=== PATIENT | male | born 1925 | race American Indian/Alaskan Native ===

== ENCOUNTER 2016-07-08 10:28 | Inpatient (IN) | payer MEDICARE ==
--- NOTE | 2016-07-08 11:11 | Cat Scan Report ---
Cranial CT without contrast. Findings: There is no evidence of an acute hemorrhage or infarct. There are no masses or extra-axial collections. Moderate senescent changes are present. The ventricles are normal in size and contour. There is no shift of midline structures. The posterior fossa is unremarkable. The The calvarium is intact. Mild ethmoid sinus disease is present. Impression: No acute findings.
[2016-07-08 11:18] LABS: INR 1.14 (0.87-1.13); Partial Thromboplastin Time 29.6 Sec. (24.2-36.6)
[2016-07-08 11:26] LABS: Anion Gap 18 mmol/L; Blood Urea Nitrogen 18 mg/dL (9-20); Calcium 9.2 mg/dL (8.4-10.2); Carbon Dioxide 26 mmol/L (22-30); Chloride 98.3 mmol/L (98-107); Glucose 147 mg/dL (75-100); Potassium 3.8 mmol/L (3.6-5.0); Sodium 138 mmol/L (137-145)
[2016-07-08 11:30] LABS: Basophils % (Auto) 0.2 % (0.0-1.8); Hematocrit 42.5 % (35.5-45.6); Hemoglobin 13.7 gm/dl (11.8-15.2); Mean Corpuscular HGB Conc 32 % (32-34); Mean Corpuscular Hemoglobin 26 pg (28-32); Mean Corpuscular Volume 79 fl (84-94); Platelet Count 168 K/mm3 (140-440); Red Blood Count 5.37 M/mm3 (3.65-5.03); Red Cell Distribution Width 14.5 % (13.2-15.2)
--- NOTE | 2016-07-08 11:44 | Emergency Department Report ---
HPI - General Chief Complaint: Neuro Symptoms/Deficit Time Seen by Provider: 07/08/16 10:52 - HPI HPI: Chief complaint: Decreased responsiveness right-sided hemiparesis HPI: Patient is an 89-year-old man with a history of hypertension, atrial fibrillation and previous stroke fact in the right side is baseline includes a slight right hemiparesis and a mild aphasia who was found on the floor by his daughter this morning. Last known well time was after midnight. Patient quit taking all of his medications a year ago. Mode of arrival: EMS Source: [old chart] [family member] Began: During the night see above Duration: Unclear Context: According to patient's daughter he's not been ill had any complaints prior to this event. Quality: Unable to assess Severity: Unable to assess Improved with: Unable to assess Worsened with: Unable to assess Associated signs and symptoms: Unable to assess ED Past Medical Hx - Past Medical History Previous Medical History?: Yes Hx Hypertension: Yes Hx CVA: Yes (2014) - Surgical History Additional Surgical History: hernia repair. eye surgery - Social History Smoking Status: Never Smoker Substance Use Type: None - Medications Home Medications: Home Medications Medication Instructions Recorded Confirmed Last Taken Type No Known Home Medications [No 07/08/16 07/08/16 Unknown History Reported Home Medications] ED Review of Systems ROS: Stated complaint: AMS Other details as noted in HPI Comment: Unobtainable due to pts medical conditions Physical Exam - Physical Exam Vital Signs: Vital Signs 07/08/16 07/08/16 07/08/16 10:29 10:37 10:38 Pulse Rate 62 Respiratory 16 15 Rate Blood Pressure 192/105 O2 Sat by Pulse 100 98 Oximetry 07/08/16 07/08/16 07/08/16 10:39 10:40 10:45 Pulse Rate 124 H 118 H Respiratory 20 23 23 Rate Blood Pressure 175/106 O2 Sat by Pulse 99 98 98 Oximetry Physical Exam: GENERAL: The patient is an elderly -Colombian male in no acute distress. HEENT: Normocephalic. Atraumatic. Extraocular motions are intact. Patient has moist mucous membranes. NECK: Supple. No meningitic signs are noted. There is no adenopathy noted. CHEST/LUNGS: Clear to auscultation. There is no respiratory distress noted. HEART/CARDIOVASCULAR: Regular. There is no tachycardia. There is no gallop rub or murmur. ABDOMEN: Abdomen is soft, nontender. Patient has normal bowel sounds. There is no abdominal distention. SKIN: There is no rash. There is no edema. There is no diaphoresis. NEURO: The patient is awake, alert, follows a few simple commands. Patient has a dense right hemiparesis and aphasia. MUSCULOSKELETAL: There is no tenderness or deformity. There is no evidence of acute injury. ED Course Vital Signs 07/08/16 07/08/16 07/08/16 10:29 10:37 10:38 Pulse Rate 62 Respiratory 16 15 Rate Blood Pressure 192/105 O2 Sat by Pulse 100 98 Oximetry 07/08/16 07/08/16 07/08/16 10:39 10:40 10:45 Pulse Rate 124 H 118 H Respiratory 20 23 23 Rate Blood Pressure 175/106 O2 Sat by Pulse 99 98 98 Oximetry - Reevaluation(s) Reevaluation #1: 07/08/16 12:15 Patient is outside the window for TPA and for neuro intervention as it has been 11 hours since his last known well time. He should also has elevated troponin and will be admitted to the hospitalist with consultation placed to cardiology, [facility] for his elevated troponin. I did discuss with the family if they knew what his wishes were for CODE STATUS but they were unable to make a decision at this time. ED Medical Decision Making - Lab Data Result diagrams: 07/08/16 10:43 07/08/16 10:43 Laboratory Tests 07/08/16 07/08/16 07/08/16 10:43 10:43 10:43 PT 14.5 INR 1.14 H APTT 29.6 Thrombin Time 17.8 Troponin T 0.592 H* - EKG Data -: EKG Interpreted by Me (female with a rate of 112) Rate: tachycardia - EKG Data When compared to previous EKG there are: previous EKG unavailable Interpretation: subendocardial ischemia (lateral T-wave inversion), other (for initial anterior forces.) - Radiology Data Radiology results: report reviewed (CT head shows no acute process, chest x-ray shows no acute process.) Critical care attestation.: If time is entered above; I have spent that time in minutes in the direct care of this critically ill patient, excluding procedure time. ED Disposition Clinical Impression: Elevated troponin CVA (cerebral vascular accident) Qualifiers: CVA mechanism: unspecified Qualified Code(s): I63.9 - Cerebral infarction, unspecified Disposition: OP ADMITTED IP TO THIS HOSP Is pt being admited?: Yes Does the pt Need Aspirin: Yes Condition: Fair Referrals: PRIMARY CARE,MD [Primary Care Provider] - 3-5 Days Time of Disposition: 11:58 (admit to the hospitalist)
--- NOTE | 2016-07-08 11:45 | XRay Report ---
AP CHEST: HISTORY: CVA AP view of the chest demonstrates a normal mediastinal and cardiac contour with clear lungs and normal bony and soft tissue structures. IMPRESSION: No acute cardiopulmonary process.
[2016-07-08] MEDS ORDERED: ASPIRIN PR ONE ×2 (12:05→17:19)
[2016-07-08 12:08] LABS: Cholesterol 207 mg/dL (50-199); HDL Cholesterol 76 mg/dL (40-59); LDL Cholesterol,Direct 121 mg/dL (50-130); Triglycerides 50 mg/dL (2-149)
--- NOTE | 2016-07-08 13:49 | Admit Criteria Form ---
Admission Criteria Documentation: TELEMETRY CARE Telemetry Admission Guidelines (Place 'X' for any and all applicable criteria): Admission to telemetry [A] may be indicated for ANY ONE of the following(1)(2)(3 )(4)(5): [ ]I. Cardiac disease, including ANY ONE of the following (9)(10)(11)(12)(13 ): [ ]a) Postacute MN [ ]b) Low-risk patients with ST-segment elevation MN who have undergone successful percutaneous coronary intervention [ ]c) Unstable angina [ ]d) Suspected MN (until it is ruled out) [ ]e) Post cardiac surgery (first 48 to 72 hours unless complications occur) [ ]f) Acute arrhythmias (including significant tachycardia or bradycardia) [B] [ ]g) Firing of an implantable cardioverter defibrillator [C] [ ]h) Suspected pacemaker or implantable cardioverter defibrillator malfunction (10) [ ]i) New administration or adjustment of an antiarrhythmic drug [D ] [ ]j) Child admitted for acute congestive heart failure [ ]j) Long QT syndrome [ ]k) Advanced heart block (eg, second-degree Mobitz type II, third- degree heart block) [ ]l) Acute myocarditis or pericarditis [ ]m) Short-term (ambulatory or inpatient) monitoring after a cardiac procedure as indicated by ANY ONE of the following [E]: [ ]i) Electrophysiologic studies [ ]ii) Percutaneous coronary intervention with stent placement [ ]iii) Pacemaker placement with cardiac conduction defect [ ]iv) Implantable cardiac defibrillator placement [ ]II. Drug overdose or poisoning with substance that causes arrhythmias or QT prolongation (eg, phenothiazines, sympathomimetic agents, cyclic antidepressants, digitalis, antiarrhythmic drugs)(15) [ ]III. Short-term (ambulatory or inpatient) monitoring after therapeutic or diagnostic procedure requiring conscious sedation or anesthesia (eg, endoscopy, elective cardioversion) [ X]IV. Acute cerebrovascular even[F](18) [ ]V. Massive blood transfusion (eg, at least 10 units of packed red blood cells in 24 hours) [ ]. Variceal bleeding after endoscopy, sclerotherapy, or IV vasopressin [ ]VII. Uncorrected electrolyte abnormalities associated with an increased risk of dangerous arrhythmia [G]; examples include [ ]a) Hyperkalemia with attributable ECG changes [ ]b) Potassium greater than 6.5 mmol/L (mEq/L) in a patient without history of chronic renal disease [ ]c) Prolonged QT attributed to hypokalemia, hypomagnesemia, or hypocalcemia [ ]VIII.Unexplained syncope or other neurologic event suspected of being due to arrhythmia due to a finding that increases risk; examples include(19)(20)(21): [ ]a) High-risk ECG findings (eg, bifascicular block, bradycardia, abnormal QT interval, ventricular pre- excitation) [ ]b) History of previous syncope due to arrhythmia [ ]c) Abnormal ventricular function (eg, reduced ejection fraction ) [ ]d) Exertional or supine syncope [ ]e) Concerning syncope characteristics (eg, sudden loss of consciousness without prodrome) [ ]f) Family history of sudden [ ]g) Use of arrhythmogenic medication [ ]h) Suspected cardiac ischemia [ ]i) Known channelopathy (eg, long QT syndrome, Brugada syndrome, or catecholaminergic paroxysmal ventricular tachycardia) [ ]j) Known structural heart disease (eg, hypertrophic cardiomyopathy , severe valvular disease) [ ]k) Palpitations preceding syncope The original [employer] content created by [employer] has been revised. The portions of the content which have been revised are identified through the use of italic text or in bold, and [employer] has neither reviewed nor approved the modified material. All other unmodified content is copyright [employer]. Please see references footnoted in the original [employer] edition 2016 Admission Criteria Met: Yes
[2016-07-08 15:00] LABS: Bacteria,Urine 1+ /HPF (Negative); Bilirubin,Urine NEG (Negative); Blood,Urine LG (Negative); Ketones,Urine NEG (Negative); Leukocyte Esterase,Urine MOD (Negative); Nitrite,Urine NEG (Negative); Urobilinogen,Urine < 2.0 mg/dL (<2.0)
[2016-07-08 15:02] LABS: RBC,Urine > 182.0 /HPF (0.0-6.0)
--- NOTE | 2016-07-08 17:00 | Consultation ---
History of Present Illness Consult date: 07/08/16 Consult reason: atrial fibrillation History of present illness: The history was obtained from the patient's daughter since he is currently aphasic. 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 According to his daughter, he was found to be in atrial fibrillation and placed on Eliquis. However, he reportedly converted back to sinus rhythm. The patient refused to use any of his medications. According to his daughter, he was competent when he made the decision. This morning, his daughter found him lying on the floor, aphasic. He was brought to the emergency department where he was noted to be in rapid atrial fibrillation. His blood pressure was elevated at presentation. He was also noted not to be moving his right side. Brain CT scan did not show any acute findings. Troponin level is positive for acute NSTEMI. Past History Past Medical History: hypertension, hyperlipidemia, stroke Past Surgical History: Other (eye surgery) Social history: . denies: smoking, alcohol abuse Family history: denies: CAD Medications and Allergies Allergies Allergy/AdvReac Type Severity Reaction Status Date / Time No Known Allergies Allergy Unverified 07/08/16 10:36 Home Medications Medication Instructions Recorded Confirmed Last Taken Type No Known Home Medications [No 07/08/16 07/08/16 Unknown History Reported Home Medications] Review of Systems ROS unobtainable: due to mental status Physical Examination Vital Signs Pulse Resp BP Pulse Ox 62 16 192/105 100 07/08/16 10:29 07/08/16 10:29 07/08/16 10:29 07/08/16 10:29 General appearance: no acute distress HEENT: Positive: Normocephaly, Mucus Membranes Moist Neck: Positive: neck supple, trachea midline Cardiac: Positive: irregularly irregular, S1/S2 Lungs: Positive: clear to auscultation Neuro: Positive: Other (left hemiparesis with aphasia) Abdomen: Positive: Soft, Active Bowel Sounds. Negative: Tender Skin: Positive: Clear. Negative: Rash Musculoskeletal: No Fluid Collection Extremities: Present: normal. Absent: edema Results 07/08/16 10:43 07/08/16 10:43 - Imaging and Cardiology EKG: image reviewed EKG interpretations - Telemetry EKG Rhythm: Atrial Fibrillation - EKG Supraventricular dysrhythmia: atrial fibrillation, atrial flutter Repolarization changes or abnormalities: ST or T wave suggestive of ischemia Assessment and Plan Initiate IV Cardizem drip for rate control and BP. Additional parenteral antihypertensive medications while NPO. Consider neurology consultation. Intravenous heparin if and when alright from a neurology standpoint. Obtain echocardiogram. Obtain additional sets of cardiac enzymes. - Patient Problems (1) Acute CVA (cerebrovascular accident) Current Visit: Yes Status: Acute (2) Acute non-ST elevation myocardial infarction (NSTEMI) Current Visit: Yes Status: Acute (3) Accelerated hypertension Current Visit: Yes Status: Acute (4) Atrial fibrillation with rapid ventricular response Current Visit: Yes Status: Acute (5) Atrial fibrillation and flutter Current Visit: Yes Status: Acute (6) Noncompliance Current Visit: Yes Status: Acute
[2016-07-08] MEDS: LOPRESSOR IV SCH (17:55)
[2016-07-08] MEDS ORDERED: CARDIZEM/D5W 100MG/100ML 100 MG/100 ML BAG IV SCH (18:00)
--- NOTE | 2016-07-08 22:09 | Event Note ---
Date: 07/08/16 See H/p in reports
[2016-07-08] MEDS ORDERED: MILK OF MAGNESIA PO PRN ×2 (22:10→22:14)
[2016-07-08] MEDS ORDERED: DILAUDID IV PRN (22:10)
[2016-07-08] MEDS ORDERED: TYLENOL PO PRN ×2 (22:10→22:14)
[2016-07-08] MEDS ORDERED: ZOFRAN IV PRN ×2 (22:10→22:14)
[2016-07-08] MEDS ORDERED: DULCOLAX PR PRN ×2 (22:10→22:14)
[2016-07-08] MEDS ORDERED: PHENERGAN PR PRN (22:14)
[2016-07-08] MEDS ORDERED: REGLAN PO PRN (22:14)
[2016-07-08] MEDS ORDERED: SODIUM CHLORIDE FLUSH SYRINGE 10 ML IV PRN (22:14)
--- NOTE | 2016-07-08 23:42 | History and Physical Report ---
CHIEF COMPLAINT: Right-sided weakness since last night. HISTORY OF PRESENT ILLNESS: This 89-year-old male with history of hypertension, atrial fibrillation, previous cerebrovascular accident with right-sided hemiparesis who was walking, was found to be aphasic and completely weak on the right side. He was found on the floor by the daughter this morning. Last ____ was last night. The patient quit taking all of his medications a year ago. The patient does have hypertension and atrial fibrillation. No palpitations. No chest pain. No shortness of breath. Unable to move right upper and right lower extremity completely. Also unable to talk. PAST MEDICAL HISTORY: Significant for hypertension, atrial fibrillation, cerebrovascular accident in 2015. PAST SURGICAL HISTORY: Hernia repair and eye surgery. SOCIAL HISTORY: Does not smoke. CURRENT MEDICATIONS: None. Stopped taking medications about a year ago. FAMILY HISTORY: Significant for hypertension. REVIEW OF SYSTEMS: Significant for; CONSTITUTIONAL: Altered mental status and aphasia. HEENT: No sore throat. No postnasal drip. CARDIOVASCULAR AND RESPIRATORY: No shortness of breath, no chest pain, no palpitations, no cough. GASTROINTESTINAL: No nausea, no vomiting, no diarrhea. GENITOURINARY: No dysuria, no flank pain. MUSCULOSKELETAL: No joint pains, no muscle pains. SKIN: No rashes. CENTRAL NERVOUS SYSTEM: Right upper extremity and right lower extremity weakness present. Also, unable to talk. Unable to walk. SKIN: No rashes. LYMPHATIC AND HEMATOLOGIC: No bruising, no lymphedema present. PSYCHIATRIC: No depression, no anxiety. A 14-point review of systems done, other than history of present illness, essentially negative. PHYSICAL EXAMINATION: GENERAL: Elderly male, cooperative during examination. Unable to talk. VITAL SIGNS: Temperature is 98, pulse is 62 initially, blood pressure is 175/106 and 192/105, sats are 99%. HEENT: Right facial paralysis present. Aphasic. NECK: Supple, no carotid artery bruit. LUNGS: Clear to auscultation and percussion. Good air entry. CARDIOVASCULAR: S1, S2 heard. No gallop, no murmur, no rub. Apical impulse in left fifth intercostal space and midclavicular line. ABDOMEN: Soft and benign. No hepatosplenomegaly. No guarding. No rigidity. MUSCULOSKELETAL: Good pedal pulses. No pedal edema. CENTRAL NERVOUS SYSTEM: Right upper extremity and right lower extremity 0/5 power. Reflexes are brisk on the right side. Right facial paralysis present. Aphasia present. Sensory system could not be tested. Cranial nerves are normal other than the right seventh facial. Hearing appears to be normal. SKIN: Normal. LABORATORY DATA AND IMAGING STUDIES: EKG shows heart rate of 112, tachycardia, lateral T-wave inversion. CT of the head, no acute process. Chest x-ray, no acute process. LABORATORY DATA: White count is 7000, H and H is 13.7 and 42.5, platelet count is 168,000. Protime is 14.5, INR is 1.14. Sodium is 138, potassium is 3.8. Troponin is ____. Cholesterol is 207. HDL cholesterol is 76, triglycerides 50. Urine shows white blood cells of 36 and RBC of 182. ASSESSMENT AND PLAN: 1. Altered mental status, probably secondary to acute cerebrovascular accident. We will treat the cerebrovascular accident. Cerebrovascular accident workup. 2. Acute cerebrovascular accident. Cerebrovascular accident workup in the form of MRI and MRA of brain, echocardiogram, and carotid duplex scan. The patient also to be started on Plavix since there is no bleed. Also, physical therapy consult ordered. 3. Hypertension, uncontrolled at this point. The patient not taking any medications. We will initiate him on Losartan 100 daily and Coreg 3.125 q.12h. 4. Atrial fibrillation with rapid ventricular response. The patient started on a Cardizem drip. 5. Noncompliance. The patient counseled. 5. Deep venous thrombosis prophylaxis, Lovenox 40 mg subcutaneous daily. 6. Hypoglycemia. Monitor glucose levels a.c. and at bedtime and check hemoglobin A1c. Initiate him on hypoglycemics if necessary. Consult was placed for ____ Neurology, Dr. Nia Hoffmann for rehabilitation and Dr. Carrasco for atrial fibrillation with rapid ventricular rate and also evaluated troponin. 7. Elevated troponin, probably nonspecific. CK is normal. There is some lateral T-wave inversion. We will defer to Cardiology for further evaluation of ischemic disease in view of the high troponin. JOB# [id number] VSM/NTS
[2016-07-09] MEDS: LOPRESSOR IV SCH ×4 (00:30→21:05)
[2016-07-09 06:16] LABS: Basophils % (Auto) 0.8 % (0.0-1.8); Hemoglobin 14.5 gm/dl (11.8-15.2); Mean Corpuscular HGB Conc 32 % (32-34); Mean Corpuscular Volume 79 fl (84-94); Platelet Count 131 K/mm3 (140-440); Red Cell Distribution Width 14.7 % (13.2-15.2)
[2016-07-09 06:18] LABS: Mean Corpuscular Hemoglobin 25 pg (28-32)
[2016-07-09 06:39] LABS: Alanine Aminotransferase 23 units/L (7-56); Albumin 3.6 g/dL (3.9-5); Albumin/Globulin Ratio 0.9 %; Alkaline Phosphatase 72 units/L (35-129); Bilirubin,Total 1.5 mg/dL (0.1-1.2); Blood Urea Nitrogen 18 mg/dL (9-20); Calcium 9.2 mg/dL (8.4-10.2); Carbon Dioxide 27 mmol/L (22-30); Glucose 140 mg/dL (75-100); Total Protein 7.4 g/dL (6.3-8.2)
[2016-07-09 06:40] LABS: Anion Gap 18 mmol/L; Chloride 98.1 mmol/L (98-107); Sodium 139 mmol/L (137-145)
[2016-07-09] MEDS ORDERED: CARDIZEM CD PO SCH (10:00)
[2016-07-09] MEDS ORDERED: NORVASC PO SCH (10:00)
[2016-07-09] MEDS ORDERED: ZESTRIL PO SCH (10:00)
[2016-07-09] MEDS ORDERED: COZAAR PO SCH (10:00)
[2016-07-09] MEDS ORDERED: LOPRESSOR PO SCH (10:00)
[2016-07-09] MEDS ORDERED: ROCEPHIN/NS 1 GM/50 ML 1 GM/50 ML BAG IV SCH (10:00)
[2016-07-09] MEDS ORDERED: LOPRESSOR IV SCH (10:00)
--- NOTE | 2016-07-09 10:20 | Consultation ---
History of Present Illness Consult date: 07/09/16 Requesting physician: TIP NIÑO Reason for Consult: stroke Chief complaint: AMS limits direc thx d/t aphasia History of present illness: 89 YO M Hx stroke w/ residual R hemiparesis and AFib noncompliant w/ Plavix/AC for 1 year found down @ home on 07/08. Last well is unclear. He was found to be aphasic with R sided hemiplegia. Sx are constant. There are no clear aggravating , relieving or temporal factors. Severity was enough to cause inability to effectively use the right side or communicate. Past History Past Medical History: atrial fib, hypertension, hyperlipidemia, stroke Past Surgical History: Other (eye surgery) Social history: . denies: smoking, alcohol abuse Family history: denies: CAD Medications and Allergies Allergies Allergy/AdvReac Type Severity Reaction Status Date / Time No Known Allergies Allergy Unverified 07/08/16 10:36 Home Medications Medication Instructions Recorded Confirmed Last Taken Type No Known Home Medications [No 07/08/16 07/08/16 Unknown History Reported Home Medications] Active Meds: Active Medications Acetaminophen (Tylenol) 650 mg PO Q4H PRN PRN Reason: Pain, Mild (1-3) Amlodipine Besylate (Norvasc) 10 mg PO QDAY ALEXA Bisacodyl (Dulcolax) 10 mg RI QDAY PRN PRN Reason: Constipation unrelieved by MOM Clopidogrel Bisulfate (Plavix) 75 mg PO QDAY ALEXA Enalaprilat (Vasotec) 1.25 mg IV Q6HR ALEXA Hydralazine HCl (Apresoline) 10 mg IV Q4H PRN PRN Reason: SBP >160 Hydromorphone HCl (Dilaudid) 0.5 mg IV Q3H PRN PRN Reason: Pain , Severe (7-10) Sodium Chloride (Nacl 0.9% 1000 Ml) 1,000 mls @ 75 mls/hr IV DIRECT ALEXA Ceftriaxone Sodium (Rocephin/Ns 1 Gm/50 Ml) 1 gm in 50 mls @ 100 mls/hr IV Q24HR ALEXA PRN Reason: Protocol Lisinopril (Zestril) 40 mg PO QDAY ALEXA Losartan Potassium (Cozaar) 100 mg PO QDAY ALEXA Magnesium Hydroxide (Milk Of Magnesia) 30 ml PO Q4H PRN PRN Reason: Constipation Metoclopramide HCl (Reglan) 10 mg PO Q6H PRN PRN Reason: Nausea And Vomiting Metoprolol Tartrate (Lopressor) 5 mg IV Q4HR ALEXA Metoprolol Tartrate (Lopressor) 50 mg PO Q6H ALEXA Ondansetron HCl (Zofran) 4 mg IV Q8H PRN PRN Reason: N/V unrelieved by Reglan Oxycodone/Acetaminophen (Percocet 5/325) 1 tab PO Q6H PRN PRN Reason: Pain, Moderate (4-6) Promethazine HCl (Phenergan) 25 mg RI Q6H PRN PRN Reason: Nausea And Vomiting Simvastatin (Zocor) 20 mg PO QHS ALEXA Sodium Chloride (Sodium Chloride Flush Syringe 10 Ml) 10 ml IV PRN PRN PRN Reason: LINE FLUSH Review of Systems ROS unobtainable: due to mental status Physical Examination - Vital Signs Vital Signs: Vital Signs Pulse Resp BP Pulse Ox 62 16 192/105 100 07/08/16 10:29 07/08/16 10:29 07/08/16 10:29 07/08/16 10:29 - Constitutional General appearance: acutely ill - EENT EENT: Present: ATNC, PERRL, mucous membranes dry, hearing intact, vision intact - Respiratory Respiratory: Present: chest non-tender, no respiratory distress, decreased breath sounds - Cardiovascular Cardiovascular: Present: other (AFib) Extremities: Present: no peripheral edema bilatateraly, no clubbing, cyanosis, no inflammation, no ischemia or petechiae - Gastrointestinal Gastrointestinal: Present: normoactive bowel sounds, soft, non-distended - Integumentary Integumentary: Present: normal - Neurologic Cranial nerve examination: PERRL, EOMI, VFF, V1/V2/V3 grossly intact, intact cough reflex, Intact Vestibulo-ocular r, intact corneal reflex, facial droop ( on R mild) Speech examination: global aphasia Sensorimotor examination: flaccid paralysis (on R) Motor examination - right side: 04/18: biceps, triceps, wrist flexion, wrist extension, ice cream van vendor, 5: hip flexors, knee extensors, dorsiflexion, toe extension ( EHL), plantarflexion Motor examination - left side: 5/5: biceps, triceps, wrist flexion, wrist extension, ice cream van vendor, hip flexors, knee extensors, dorsiflexion, toe extension (EHL) , plantarflexion Detailed sensory examination: intact, pain Reflex and gait examination: Babinski's sign (on R) Reflexes: 3+: ankle (on R), bicep, knee, tricep - Musculoskeletal Musculoskeletal: Present: no fluid collection, no pain, normal range of motion - Psychiatric Psychiatric: Present: mood/affect appropriate, cooperative Results - Laboratory Findings CBC and BMP: 07/09/16 05:58 07/09/16 05:58 Abnormal Lab Findings: Abnormal Labs 07/08/16 07/09/16 07/09/16 14:47 05:58 05:58 RBC 5.70 H MCV 79 L MCH 25 L Plt Count 131 L Lymph % (Auto) 11.6 L [place] % (Auto) 10.0 H Lymph # 1.0 L [place] # 0.9 H Seg Neutrophils % 77.6 H Glucose 140 H Total Bilirubin 1.5 H Albumin 3.6 L Urine WBC (Auto) 36.0 H Assessment and Plan 89 YO M Hx stroke w/ residual mild aphasia and R hemiparesis and AFib not compliant w/ AC/Plavix 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 CTH neg. NIHSS 17. TTE neg. LDL 121 Plan and Recommendation: 1. No indication for pharmacologic thrombolysis with IV tPA or mechanical thrombectomy due to last known normal > 6 hrs from presentation. Current NIHSS 17. 2. Telemetry bed w/ Q4 hour neuro checks 3. Brain imaging: MRI Brain w/o Ryan Stroke Protocol 4. Vascular Imaging: Bilateral Carotid Duplex U/S 5. Permissive HTN for first 24-48 hours: HOB < 30 degrees, isotonic IVF prn and refrain from active Tx of HTN unless BP > 185/105 or pt develops malignant HTN. Can lower MAPs by 10-15% daily to reach goal SBP 120-160 after permissive HTN period 6. Secondary stroke prevention: ASA 300mg RI QDay. I would avoid introduction of therpaeutic AC for 7-10 days to minimize risk of ICH as this is a large lobar stroke syndrome. Upgrade to full dose statin therapy (Crestor 20mg or 40mg OR Lipitor 40mg or 80mg Daily OR Zocor 40mg QDay) for goal LDL < 70. 7. F/E/N: isotonic IVF prn, prn replete, bedside speech/swallow eval prior to PO intake. Pt may require PEG considering stroke severity. 8. DVT Prophylaxis 9. Stroke education, PT/OT/Speech Therapy consults, CM evaluation 10. For any changes in neurologic status, pls obtain STAT CTH w/o contrast and call neurology
[2016-07-09] MEDS: APRESOLINE IV PRN (10:45)
--- NOTE | 2016-07-09 11:19 | Progress Note ---
Assessment and Plan Obtain additional sets of cardiac enzymes. Continue parenteral antihypertensive medications while NPO. Intravenous heparin if and when alright from a neurology standpoint. - Patient Problems (1) Acute CVA (cerebrovascular accident) Current Visit: Yes Status: Acute (2) Acute non-ST elevation myocardial infarction (NSTEMI) Current Visit: Yes Status: Acute (3) Accelerated hypertension Current Visit: Yes Status: Acute (4) Atrial fibrillation with rapid ventricular response Current Visit: Yes Status: Acute (5) Atrial fibrillation and flutter Current Visit: Yes Status: Acute (6) Noncompliance Current Visit: Yes Status: Acute Subjective Date of service: 07/09/16 Principal diagnosis: atrial fibrillation Interval history: The patient is resting in bed. He is aphasic. Atrial fibrillation with controlled ventricular rate on the monitor. Objective Last Vital Signs Temp 98 F 07/09/16 07:00 Pulse 105 H 07/09/16 10:45 Resp 25 H 07/09/16 04:31 BP 194/127 07/09/16 10:45 Pulse Ox 94 07/09/16 04:00 - Physical Examination General: No Apparent Distress (aphasic) HEENT: Positive: Normocephaly, Mucus Membranes Moist Neck: Positive: neck supple, trachea midline Cardiac: Positive: irregularly irregular, S1/S2 Lungs: Positive: clear to auscultation Neuro: Positive: Other (left hemiparesis with aphasia) Abdomen: Positive: Soft, Active Bowel Sounds. Negative: Tender Skin: Positive: Clear. Negative: Rash Musculoskeletal: No Fluid Collection Extremities: Present: normal. Absent: edema - Labs and Meds Cardiac Enzymes 07/09/16 Range/Units 05:58 AST 38 (5-40) units/L CBC 07/09/16 Range/Units 05:58 WBC 9.0 (4.5-11.0) K/mm3 RBC 5.70 H (3.65-5.03) M/mm3 Hgb 14.5 (11.8-15.2) gm/dl Hct 45.0 (35.5-45.6) % Plt Count 131 L (140-440) K/mm3 Lymph # 1.0 L (1.2-5.4) K/mm3 [place] # 0.9 H (0.0-0.8) K/mm3 Eos # 0.0 (0.0-0.4) K/mm3 Baso # 0.1 (0.0-0.1) K/mm3 Comprehensive Metabolic Panel 07/09/16 Range/Units 05:58 Sodium 139 (137-145) mmol/L Potassium 4.0 (3.6-5.0) mmol/L Chloride 98.1 (98-107) mmol/L Carbon Dioxide 27 (22-30) mmol/L BUN 18 (9-20) mg/dL Creatinine 0.9 (0.8-1.5) mg/dL Glucose 140 H (75-100) mg/dL Calcium 9.2 (8.4-10.2) mg/dL AST 38 (5-40) units/L ALT 23 (7-56) units/L Alkaline Phosphatase 72 (35-129) units/L Total Protein 7.4 (6.3-8.2) g/dL Albumin 3.6 L (3.9-5) g/dL - Imaging and Cardiology EKG: image reviewed Echo: report reviewed (06/2016: EF 50-55%) - Telemetry EKG Rhythm: Atrial Fibrillation Repolarization changes or abnormalities: ST or T wave suggestive of ischemia
[2016-07-09] MEDS ORDERED: VASOTEC IV SCH (12:00)
--- NOTE | 2016-07-09 12:10 | Consultation ---
History of Present Illness - Reason for Consult Consult date: 07/09/16 ICU Requesting physician: NEO FRITZ - History of Present Illness 89 y/o male, with prior history of stroke, admitted to ICU with afib with RVR and concern for new stroke. Unfortunately patient was out of window for TPA given last well known time. Remainder of the review is positive for unilateral weakness. Patient awake and following commands. Past History Past Medical History: atrial fib, hypertension, hyperlipidemia, stroke Past Surgical History: Other (eye surgery) Social history: . denies: smoking, alcohol abuse Family history: denies: CAD Medications and Allergies Allergies Allergy/AdvReac Type Severity Reaction Status Date / Time No Known Allergies Allergy Unverified 07/08/16 10:36 Home Medications Medication Instructions Recorded Confirmed Last Taken Type No Known Home Medications [No 07/08/16 07/08/16 Unknown History Reported Home Medications] Active Meds: Active Medications Acetaminophen (Tylenol) 650 mg PO Q4H PRN PRN Reason: Pain, Mild (1-3) Amlodipine Besylate (Norvasc) 10 mg PO QDAY ALEXA Bisacodyl (Dulcolax) 10 mg [place] QDAY PRN PRN Reason: Constipation unrelieved by MOM Clopidogrel Bisulfate (Plavix) 75 mg PO QDAY ALEXA Enalaprilat (Vasotec) 1.25 mg IV Q6HR ALEXA Hydralazine HCl (Apresoline) 10 mg IV Q4H PRN PRN Reason: Blood Pressure Last Admin: 07/09/16 10:45 Dose: 10 mg Hydromorphone HCl (Dilaudid) 0.5 mg IV Q3H PRN PRN Reason: Pain , Severe (7-10) Sodium Chloride (Nacl 0.9% 1000 Ml) 1,000 mls @ 75 mls/hr IV DIRECT ALEXA Ceftriaxone Sodium (Rocephin/Ns 1 Gm/50 Ml) 1 gm in 50 mls @ 100 mls/hr IV Q24HR AELXA PRN Reason: Protocol Lisinopril (Zestril) 40 mg PO QDAY ALEXA Losartan Potassium (Cozaar) 100 mg PO QDAY ALEXA Magnesium Hydroxide (Milk Of Magnesia) 30 ml PO Q4H PRN PRN Reason: Constipation Metoclopramide HCl (Reglan) 10 mg PO Q6H PRN PRN Reason: Nausea And Vomiting Metoprolol Tartrate (Lopressor) 5 mg IV Q4HR ALEXA Metoprolol Tartrate (Lopressor) 50 mg PO Q6H ALEXA Ondansetron HCl (Zofran) 4 mg IV Q8H PRN PRN Reason: N/V unrelieved by Reglan Oxycodone/Acetaminophen (Percocet 5/325) 1 tab PO Q6H PRN PRN Reason: Pain, Moderate (4-6) Promethazine HCl (Phenergan) 25 mg [place] Q6H PRN PRN Reason: Nausea And Vomiting Simvastatin (Zocor) 20 mg PO QHS ALEXA Sodium Chloride (Sodium Chloride Flush Syringe 10 Ml) 10 ml IV PRN PRN PRN Reason: LINE FLUSH Review of Systems All systems: negative Exam - Constitutional Vitals: Temp Pulse Resp BP Pulse Ox 98 F 105 H 25 H 194/127 94 07/09/16 07:00 07/09/16 10:45 07/09/16 04:31 07/09/16 10:45 07/09/16 04:00 General appearance: Present: no acute distress - Neck Neck: Present: supple - Respiratory Respiratory effort: normal Respiratory: bilateral: CTA - Cardiovascular Rhythm: irregularly irregular Results - Labs CBC & Chem 7: 07/09/16 05:58 07/09/16 05:58 Labs: Abnormal lab results 07/08/16 07/09/16 07/09/16 Range/Units 14:47 05:58 05:58 RBC 5.70 H (3.65-5.03) M/mm3 MCV 79 L (84-94) fl MCH 25 L (28-32) pg Plt Count 131 L (140-440) K/mm3 Lymph % (Auto) 11.6 L (13.4-35.0) % [place] % (Auto) 10.0 H (0.0-7.3) % Lymph # 1.0 L (1.2-5.4) K/mm3 [place] # 0.9 H (0.0-0.8) K/mm3 Seg Neutrophils % 77.6 H (40.0-70.0) % Glucose 140 H (75-100) mg/dL Total Bilirubin 1.5 H (0.1-1.2) mg/dL Albumin 3.6 L (3.9-5) g/dL Urine WBC (Auto) 36.0 H (0.0-6.0) /HPF - Imaging and Cardiology CT Scan - head: report reviewed Assessment and Plan 89 y/o male with afib with RVR and prior history of stroke. 1. Remains in afib. Cardiology waiting on Neuro to let them know when ok for anticoagulation. Reviewed Neuro recs. 2. MRI ordered 3. Carotid duplex ordered 4. Patient is off dilt drip now, hopeful to start long acting PO meds. 5. If remains out of RVR, should be stable for transfer to tele floor. CCT 31 minutes
--- NOTE | 2016-07-09 12:11 | XRay Report ---
SUPINE KUB: The abdominal gas pattern is unremarkable. No masses or organomegaly is identified and there is no gross evidence of free air or fluid. No significant soft tissue calcifications are noted. The feeding tube terminates in the proximal stomach just beyond the GE junction. Consider advancement by 10-15 cm. IMPRESSION: Feeding tube as described. No acute process in the abdomen.
[2016-07-09 13:36] LABS: Creatine Kinase MB 7.1 ng/mL (0.0-4.0)
--- NOTE | 2016-07-09 13:51 | XRay Report ---
SUPINE KUB: History: Feeding tube placement/repositioning. The abdominal gas pattern is unremarkable. No masses or organomegaly is identified and there is no gross evidence of free air or fluid. No significant soft tissue calcifications are noted. The feeding tube has been advanced and now terminates in the body/antrum of the stomach. IMPRESSION: Normal study.
[2016-07-09] MEDS ORDERED: ATIVAN ONE (14:58)
[2016-07-09] MEDS ORDERED: ATIVAN IV ONE (15:35)
[2016-07-09] MEDS: PLAVIX PO SCH (16:29)
--- NOTE | 2016-07-09 16:53 | Magnetic Resonance Report ---
FINAL REPORT PROCEDURE: MR BRAIN WO CON TECHNIQUE: Magnetic resonance imaging of the brain was performed without contrast material. HISTORY: stroke COMPARISON: CT exam from the previous day FINDINGS: Cerebellar tonsils are normally positioned. Cerebral ventricles are normal in size. Restricted diffusion and increased T2 signal is seen in the medial aspect of the left frontal and parietal lobes with involvement of the left side of the corpus callosum. Findings suggest recent CVA. Patchy areas of restricted diffusion are seen in the more lateral aspect of the left frontal and parietal cortex with mild increased T2 signal suggesting recent CVA. No significant mass effect is seen and there is no hemorrhagic transformation. There are multiple foci of old micro hemorrhage present within the basal ganglia, thalami, rocio, cerebellum, and occipital lobes. Diffuse confluent increased T2 signal is seen in the supratentorial white matter probably due to chronic small vessel ischemic changes. Paranasal sinuses and mastoid air cells appear clear of fluid. IMPRESSION: Recent CVA is suspected in the medial aspects of the left frontal and parietal lobes with less prominent involvement in the lateral aspects of the left frontal and parietal lobes. No significant mass effect or hemorrhagic transformation is seen. Findings are superimposed upon prominent chronic small vessel ischemic changes.
--- NOTE | 2016-07-09 17:00 | Magnetic Resonance Report ---
FINAL REPORT PROCEDURE: MR MRA/MRV HEAD WO CON TECHNIQUE: Unenhanced 3D [id number] images of the vessels of the [place] are obtained. HISTORY: stroke COMPARISON: No prior studies are available for comparison. FINDINGS: Right vertebral artery is dominant. Motion limits the study. There is mild loss of signal within the distal left ICA a few cm proximal to the basilar artery. This is probably due to motion artifact as similar mild diminished signal is seen in the right ICA and left ICA near this level. Posterior communicating arteries are not seen. Small anterior communicating artery is seen. There is loss of signal within the distal left ARMANI medially in the region of the CVA. A few other areas of likely artifactual loss of signal are seen in the tire debeader and MCAs. IMPRESSION: Motion limits study, causing areas of artifactual loss of signal. There is likely distal occlusion of the left A3 segment.
--- NOTE | 2016-07-09 17:14 | Consultation ---
History of Present Illness - Reason for Consult Consult date: 07/09/16 Evaluate for Acute IRU - History of Present Illness 89 y.o. male found by his daughter on the floor, aphasic. Pt has a history of a prior CVA in 2014; recovered well and was able to complete self cares independently; ambulated with cane. Brain MRI confirms acute CVA at medial aspects of left frontal and parietal lobes. Pt is currently sedated in bed following MRI. Daughter is present and provides history. Consult requested for post-acute placement recommendations. Past History Past Medical History: atrial fib, hypertension, hyperlipidemia, stroke Past Surgical History: Other (eye surgery) Social history: , lives with family (dtr). denies: smoking, alcohol abuse Family history: hypertension (?). denies: CAD Medications and Allergies Allergies Allergy/AdvReac Type Severity Reaction Status Date / Time No Known Allergies Allergy Unverified 07/08/16 10:36 Home Medications Medication Instructions Recorded Confirmed Last Taken Type No Known Home Medications [No 07/08/16 07/08/16 Unknown History Reported Home Medications] Active Meds: Active Medications Acetaminophen (Tylenol) 650 mg PO Q4H PRN PRN Reason: Pain, Mild (1-3) Bisacodyl (Dulcolax) 10 mg [place] QDAY PRN PRN Reason: Constipation unrelieved by MOM Clopidogrel Bisulfate (Plavix) 75 mg PO QDAY [facility] Last Admin: 07/09/16 16:29 Dose: 75 mg Hydralazine HCl (Apresoline) 10 mg IV Q4H PRN PRN Reason: Blood Pressure Last Admin: 07/09/16 10:45 Dose: 10 mg Hydromorphone HCl (Dilaudid) 0.5 mg IV Q3H PRN PRN Reason: Pain , Severe (7-10) Sodium Chloride (Nacl 0.9% 1000 Ml) 1,000 mls @ 75 mls/hr IV DIRECT ALEXA Magnesium Hydroxide (Milk Of Magnesia) 30 ml PO Q4H PRN PRN Reason: Constipation Metoclopramide HCl (Reglan) 10 mg PO Q6H PRN PRN Reason: Nausea And Vomiting Metoprolol Tartrate (Lopressor) 5 mg IV Q6H ALEXA Last Admin: 07/09/16 16:28 Dose: 5 mg Ondansetron HCl (Zofran) 4 mg IV Q8H PRN PRN Reason: N/V unrelieved by Reglan Oxycodone/Acetaminophen (Percocet 5/325) 1 tab PO Q6H PRN PRN Reason: Pain, Moderate (4-6) Promethazine HCl (Phenergan) 25 mg [place] Q6H PRN PRN Reason: Nausea And Vomiting Simvastatin (Zocor) 20 mg PO QHS ALEXA Sodium Chloride (Sodium Chloride Flush Syringe 10 Ml) 10 ml IV PRN PRN PRN Reason: LINE FLUSH Review of Systems ROS unobtainable: due to mental status (unable to obtain; sedated for MRI) Exam - Exam Narrative exam: limited exam due to being sedated to perform MRI - Constitutional Vitals: Vital Signs - 12hr 07/09/16 07/09/16 07/09/16 05:13 06:19 07:00 Temperature 98.4 F 98 F Pulse Rate 84 Pulse Rate [ From Monitor] Respiratory Rate Blood Pressure 161/90 O2 Sat by Pulse Oximetry 07/09/16 07/09/16 07/09/16 07:07 08:00 09:00 Temperature Pulse Rate 76 81 106 H Pulse Rate [ From Monitor] Respiratory 15 19 27 H Rate Blood Pressure 174/92 161/93 O2 Sat by Pulse 98 97 96 Oximetry 07/09/16 07/09/16 07/09/16 10:00 10:45 11:00 Temperature Pulse Rate 115 H 105 H 103 H Pulse Rate [ From Monitor] Respiratory 23 29 H Rate Blood Pressure 194/127 194/127 182/113 O2 Sat by Pulse 100 99 Oximetry 07/09/16 07/09/16 07/09/16 12:00 13:00 14:00 Temperature 98 F Pulse Rate 117 H 94 H 102 H Pulse Rate [ From Monitor] Respiratory 23 25 H 25 H Rate Blood Pressure 181/106 190/98 187/112 O2 Sat by Pulse 98 97 97 Oximetry 07/09/16 07/09/16 07/09/16 15:56 16:00 16:10 Temperature Pulse Rate 124 H 131 H Pulse Rate [ 130 H From Monitor] Respiratory 17 26 H Rate Blood Pressure 187/112 187/112 O2 Sat by Pulse Oximetry 07/09/16 16:28 Temperature Pulse Rate 135 H Pulse Rate [ From Monitor] Respiratory Rate Blood Pressure 190/99 O2 Sat by Pulse Oximetry General appearance: other (sedated for MRI) - Respiratory Respiratory effort: normal Respiratory: bilateral: CTA - Cardiovascular Rhythm: irregularly irregular Heart Sounds: Present: S1 & S2 - Extremities Extremities: No edema - Gastrointestinal General gastrointestinal: Present: soft, non-distended, normal bowel sounds - Integumentary Integumentary: Present: clear - Labs CBC & Chem 7: 07/09/16 05:58 07/09/16 05:58 Labs: Laboratory Results - last 72 hr 07/08/16 07/09/16 07/09/16 14:47 05:58 05:58 WBC 9.0 RBC 5.70 H Hgb 14.5 Hct 45.0 MCV 79 L MCH 25 L MCHC 32 RDW 14.7 Plt Count 131 L Lymph % (Auto) 11.6 L [place] % (Auto) 10.0 H Eos % (Auto) 0.0 Baso % (Auto) 0.8 Lymph # 1.0 L [place] # 0.9 H Eos # 0.0 Baso # 0.1 Seg Neutrophils % 77.6 H Seg Neutrophils # 7.0 Sodium 139 Potassium 4.0 Chloride 98.1 Carbon Dioxide 27 Anion Gap 18 BUN 18 Creatinine 0.9 Estimated GFR > 60 BUN/Creatinine Ratio 20.00 Glucose 140 H Calcium 9.2 Total Bilirubin 1.5 H AST 38 ALT 23 Alkaline Phosphatase 72 Total Creatine Kinase CK-MB (CK-2) CK-MB (CK-2) Rel Index Troponin T Total Protein 7.4 Albumin 3.6 L Albumin/Globulin Ratio 0.9 Urine Color Red Urine Turbidity Slightly-cloudy Urine pH 7.0 Ur Specific [place] 1.014 Urine Protein 100 mg/dl Urine Glucose (UA) Neg Urine Ketones Neg Urine Blood Lg Urine Nitrite Neg Urine Bilirubin Neg Urine Urobilinogen < 2.0 Ur Leukocyte Esterase Mod Urine WBC (Auto) 36.0 H Urine RBC (Auto) > 182.0 U Epithel Cells (Auto) 1.0 Urine Bacteria (Auto) 1+ Urine Yeast (Budding) Few 07/09/16 12:57 WBC RBC Hgb Hct MCV MCH MCHC RDW Plt Count Lymph % (Auto) [place] % (Auto) Eos % (Auto) Baso % (Auto) Lymph # [place] # Eos # Baso # Seg Neutrophils % Seg Neutrophils # Sodium Potassium Chloride Carbon Dioxide Anion Gap BUN Creatinine Estimated GFR BUN/Creatinine Ratio Glucose Calcium Total Bilirubin AST ALT Alkaline Phosphatase Total Creatine Kinase 946 H CK-MB (CK-2) 7.1 H CK-MB (CK-2) Rel Index 0.7 Troponin T 0.450 H* D Total Protein Albumin Albumin/Globulin Ratio Urine Color Urine Turbidity Urine pH Ur Specific [place] Urine Protein Urine Glucose (UA) Urine Ketones Urine Blood Urine Nitrite Urine Bilirubin Urine Urobilinogen Ur Leukocyte Esterase Urine WBC (Auto) Urine RBC (Auto) U Epithel Cells (Auto) Urine Bacteria (Auto) Urine Yeast (Budding) Assessment and Plan Patient was assessed and evaluated for Acute Inpatient Rehab Unit. 89 y.o. male with acute left CVA. Pt's daughter is present in room on today; states he completed therapies at SNF following previous stroke and recovered well. Pt is currently sedated following MRI; therapy evaluations (PT/OT) are currently pending, will add LOFT WORKER evaluation as [facility] is currently in place. Daughter was educated on differences between IRU vs. SNF; will follow for appropriate placement recommendation when patient is more alert. Ongoing medical management for HTN, Afib. Will continue to follow. Thank you for consultation. - Patient Problems (1) Accelerated hypertension Current Visit: Yes Status: Acute (2) Acute CVA (cerebrovascular accident) Current Visit: Yes Status: Acute (3) Atrial fibrillation with rapid ventricular response Current Visit: Yes Status: Acute
[2016-07-09 17:45] LABS: Creatine Kinase MB 7.6 ng/mL (0.0-4.0)
[2016-07-09] MEDS: ZOCOR PO SCH (21:06)
[2016-07-10] MEDS: LOPRESSOR IV SCH ×2 (04:06→07:31)
[2016-07-10] MEDS: NACL 0.9% 1000 ML 1,000 ML IV SCH ×2 (04:08→17:32)
[2016-07-10] MEDS: APRESOLINE IV PRN (05:15)
--- NOTE | 2016-07-10 05:26 | Progress Note ---
Assessment and Plan - Patient Problems (1) Atrial fibrillation with rapid ventricular response Current Visit: Yes Status: Acute Plan to address problem: Continue rate control with cardizem drip, and transition to bblocker therapy as tolerated to continue rate control (2) Encephalopathy Current Visit: Yes Status: Acute Plan to address problem: Secondary to CVA, continue current therapy (3) Acute CVA (cerebrovascular accident) Current Visit: Yes Status: Acute Plan to address problem: Stroke protocol: Antiplatelet therapy, CT hear, MRI/MRA, supportive care, Rehab consulted on admission (4) Noncompliance Current Visit: Yes Status: Acute Plan to address problem: Discussed with family, (5) DVT prophylaxis Current Visit: Yes Status: Acute History Interval history: Pt lying in bed, nonresponsive, No reported nursing events overnight. Hospitalist Physical - Constitutional Vitals: Temp Pulse Resp BP Pulse Ox 98.3 F 109 H 24 170/79 99 07/10/16 04:00 07/10/16 05:15 07/10/16 05:00 07/10/16 05:15 07/10/16 05:00 General appearance: Present: mild distress, other (sedated for MRI) - Neck Neck: Present: supple - Respiratory Respiratory: bilateral: diminished - Cardiovascular Rhythm: irregularly irregular - Extremities Extremities: no ischemia Extremity abnormal: edema Peripheral Pulses: within normal limits - Abdominal General gastrointestinal: soft, non-tender, non-distended, no hepatomegaly, no splenomegaly - Integumentary Integumentary: Present: clear, dry, decreased turgor - Psychiatric Psychiatric: no intact judgment & insight, no memory intact - Neurologic Neurologic: no CNII-XII intact, focal deficits, no moves all extremities, no gait normal Results - Labs CBC & Chem 7: 07/09/16 05:58 07/09/16 05:58 Labs: Laboratory Last Values WBC 9.0 K/mm3 (4.5-11.0) 07/09/16 05:58 RBC 5.70 M/mm3 (3.65-5.03) H 07/09/16 05:58 Hgb 14.5 gm/dl (11.8-15.2) 07/09/16 05:58 Hct 45.0 % (35.5-45.6) 07/09/16 05:58 MCV 79 fl (84-94) L 07/09/16 05:58 MCH 25 pg (28-32) L 07/09/16 05:58 MCHC 32 % (32-34) 07/09/16 05:58 RDW 14.7 % (13.2-15.2) 07/09/16 05:58 Plt Count 131 K/mm3 (140-440) L 07/09/16 05:58 Lymph % (Auto) 11.6 % (13.4-35.0) L 07/09/16 05:58 [place] % (Auto) 10.0 % (0.0-7.3) H 07/09/16 05:58 Eos % (Auto) 0.0 % (0.0-4.3) 07/09/16 05:58 Baso % (Auto) 0.8 % (0.0-1.8) 07/09/16 05:58 Lymph # 1.0 K/mm3 (1.2-5.4) L 07/09/16 05:58 [place] # 0.9 K/mm3 (0.0-0.8) H 07/09/16 05:58 Eos # 0.0 K/mm3 (0.0-0.4) 07/09/16 05:58 Baso # 0.1 K/mm3 (0.0-0.1) 07/09/16 05:58 Seg Neutrophils % 77.6 % (40.0-70.0) H 07/09/16 05:58 Seg Neutrophils # 7.0 K/mm3 (1.8-7.7) 07/09/16 05:58 PT 14.5 Sec. (12.2-14.9) 07/08/16 10:43 INR 1.14 (0.87-1.13) H 07/08/16 10:43 APTT 29.6 Sec. (24.2-36.6) 07/08/16 10:43 Thrombin Time 17.8 Sec. (15.1-19.6) 07/08/16 10:43 Sodium 139 mmol/L (137-145) 07/09/16 05:58 Potassium 4.0 mmol/L (3.6-5.0) 07/09/16 05:58 Chloride 98.1 mmol/L (98-107) 07/09/16 05:58 Carbon Dioxide 27 mmol/L (22-30) 07/09/16 05:58 Anion Gap 18 mmol/L 07/09/16 05:58 BUN 18 mg/dL (9-20) 07/09/16 05:58 Creatinine 0.9 mg/dL (0.8-1.5) 07/09/16 05:58 Estimated GFR > 60 ml/min 07/09/16 05:58 BUN/Creatinine Ratio 20.00 % 07/09/16 05:58 Glucose 140 mg/dL (75-100) H 07/09/16 05:58 Calcium 9.2 mg/dL (8.4-10.2) 07/09/16 05:58 Total Bilirubin 1.5 mg/dL (0.1-1.2) H 07/09/16 05:58 AST 38 units/L (5-40) 07/09/16 05:58 ALT 23 units/L (7-56) 07/09/16 05:58 Alkaline Phosphatase 72 units/L (35-129) 07/09/16 05:58 Total Creatine Kinase 948 units/L (55-170) H 07/09/16 16:58 CK-MB (CK-2) 7.6 ng/mL (0.0-4.0) H 07/09/16 16:58 CK-MB (CK-2) Rel Index 0.8 (0-4) 07/09/16 16:58 Troponin T 0.487 ng/mL (0.00-0.029) H* 07/09/16 16:58 Total Protein 7.4 g/dL (6.3-8.2) 07/09/16 05:58 Albumin 3.6 g/dL (3.9-5) L 07/09/16 05:58 Albumin/Globulin Ratio 0.9 % 07/09/16 05:58 Triglycerides 50 mg/dL (2-149) 07/08/16 10:43 Cholesterol 207 mg/dL (50-199) H 07/08/16 10:43 LDL Cholesterol Direct 121 mg/dL (50-130) 07/08/16 10:43 HDL Cholesterol 76 mg/dL (40-59) H 07/08/16 10:43 Cholesterol/HDL Ratio 2.72 % 07/08/16 10:43 TSH 1.440 mlU/mL (0.270-4.200) 07/09/16 21:31 Free T4 1.03 ng/dL (0.76-1.46) 07/09/16 21:31 Urine Color Red (Yellow) 07/08/16 14:47 Urine Turbidity Slightly-cloudy (Clear) 07/08/16 14:47 Urine pH 7.0 (5.0-7.0) 07/08/16 14:47 Ur Specific [place] 1.014 (1.003-1.030) 07/08/16 14:47 Urine Protein 100 mg/dl mg/dL (Negative) 07/08/16 14:47 Urine Glucose (UA) Neg mg/dL (Negative) 07/08/16 14:47 Urine Ketones Neg mg/dL (Negative) 07/08/16 14:47 Urine Blood Lg (Negative) 07/08/16 14:47 Urine Nitrite Neg (Negative) 07/08/16 14:47 Urine Bilirubin Neg (Negative) 07/08/16 14:47 Urine Urobilinogen < 2.0 mg/dL (<2.0) 07/08/16 14:47 Ur Leukocyte Esterase Mod (Negative) 07/08/16 14:47 Urine WBC (Auto) 36.0 /HPF (0.0-6.0) H 07/08/16 14:47 Urine RBC (Auto) > 182.0 /HPF (0.0-6.0) 07/08/16 14:47 U Epithel Cells (Auto) 1.0 /HPF (0-13.0) 07/08/16 14:47 Urine Bacteria (Auto) 1+ /HPF (Negative) 07/08/16 14:47 Urine Yeast (Budding) Few /HPF 07/08/16 14:47
[2016-07-10] MEDS ORDERED: LOPRESSOR IV SCH (10:00)
--- NOTE | 2016-07-10 10:06 | Progress Note ---
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 MRI Brain confirms L MCA superior division infarct. NIHSS 17. TTE neg. LDL 121. CDs neg. Plan and Recommendation: 1. No indication for pharmacologic thrombolysis with IV tPA or mechanical thrombectomy due to last known normal > 6 hrs from presentation. Current NIHSS 17. 2. Telemetry bed w/ Q4 hour neuro checks 3. Can lower MAPs by 10-15% daily to reach goal SBP 120-160 as completed permissive HTN period 4. Secondary stroke prevention: ASA 300mg GA QDay. I would avoid introduction of therpaeutic AC for 7-10 days to minimize risk of ICH as this is a large lobar stroke syndrome. Upgrade to full dose statin therapy (Crestor 20mg or 40mg OR Lipitor 40mg or 80mg Daily OR Zocor 40mg QDay) for goal LDL < 70. 5. F/E/N: isotonic IVF prn, prn replete, bedside speech/swallow eval prior to PO intake. Pt may require PEG considering stroke severity. 6. DVT Prophylaxis 7. Stroke education, PT/OT/Speech Therapy consults, CM evaluation 8. For any changes in neurologic status, pls obtain STAT CTH w/o contrast and call neurology 9. We can revisit as needed. Subjective Date of service: 07/10/16 Principal diagnosis: atrial fibrillation, L MCA stoke Interval history: MRIs completed Objective - Vital Sign Vital Signs - 12hr 07/09/16 07/10/16 07/10/16 23:00 00:00 01:00 Temperature 97.9 F Pulse Rate 107 H 96 H 94 H Pulse Rate [ 115 H From Monitor] Respiratory 21 20 19 Rate Blood Pressure 178/107 193/100 179/110 O2 Sat by Pulse 100 98 97 Oximetry 07/10/16 07/10/16 07/10/16 02:00 03:00 04:00 Temperature 98.3 F Pulse Rate 105 H 114 H 94 H Pulse Rate [ 98 H From Monitor] Respiratory 24 21 15 Rate Blood Pressure 179/110 158/119 184/122 O2 Sat by Pulse 98 98 98 Oximetry 07/10/16 07/10/16 07/10/16 04:06 04:30 05:00 Temperature Pulse Rate 107 H 116 H 131 H Pulse Rate [ From Monitor] Respiratory 24 Rate Blood Pressure 184/122 170/79 O2 Sat by Pulse 99 Oximetry 07/10/16 07/10/16 07/10/16 05:15 06:00 07:00 Temperature Pulse Rate 109 H 122 H 114 H Pulse Rate [ From Monitor] Respiratory 18 20 Rate Blood Pressure 170/79 149/88 156/100 O2 Sat by Pulse 99 99 Oximetry 07/10/16 07/10/16 07/10/16 07:31 08:00 08:10 Temperature 98 F Pulse Rate 114 H 129 H Pulse Rate [ 130 H From Monitor] Respiratory 21 Rate Blood Pressure 156/100 134/102 O2 Sat by Pulse 99 Oximetry 07/10/16 07/10/16 09:00 09:01 Temperature Pulse Rate 109 H Pulse Rate [ From Monitor] Respiratory 20 Rate Blood Pressure 139/90 O2 Sat by Pulse 100 99 Oximetry - General Apperance Constitutional: uncomfortable, acutely ill - EENT EENT: ATNC, PERRL, hearing intact, vision intact - Respiratory Respiratory: chest non-tender, no respiratory distress, decreased breath sounds - Cardiovascular Cardiovascular: other (AFib) Extremities: no peripheral edema bilat, no clubbing, cyanosis, no inflammation, no ischemia or petechiae - Gastrointestinal Gastrointestinal: hypoactive bowel sounds, soft, non-distended - Integumentary Integumentary: normal - Neurologic Cranial nerve examination: PERRL, EOMI, VFF, Intact Vestibulo-ocular r, intact corneal reflex, facial droop (on R) Speech examination: global aphasia Motor examination - right side: 1/5: biceps, triceps, wrist flexion, wrist extension, balance truer, 2/5: hip flexors, knee extensors, dorsiflexion, toe extension ( EHL), plantarflexion Motor examination - left side: 5/5: biceps, triceps, wrist flexion, wrist extension, balance truer, hip flexors, knee extensors, dorsiflexion, toe extension (EHL) , plantarflexion Detailed sensory examination: intact, pain Reflex and gait examination: Babinski's sign (on R) Reflexes: 3+: ankle (on R), bicep, knee, tricep - Musculoskeletal Musculoskeletal: no fluid collection, no pain, normal range of motion - Psychiatric Psychiatric: mood/affect appropriate - Laboratory Findings CBC and BMP: 07/09/16 05:58 07/09/16 05:58 Abnormal Lab Findings: Abnormal Labs 07/08/16 07/09/16 07/09/16 14:47 05:58 05:58 RBC 5.70 H MCV 79 L MCH 25 L Plt Count 131 L Lymph % (Auto) 11.6 L [place] % (Auto) 10.0 H Lymph # 1.0 L [place] # 0.9 H Seg Neutrophils % 77.6 H Glucose 140 H Total Bilirubin 1.5 H Total Creatine Kinase CK-MB (CK-2) Troponin T Albumin 3.6 L Urine WBC (Auto) 36.0 H 07/09/16 07/09/16 12:57 16:58 RBC MCV MCH Plt Count Lymph % (Auto) [place] % (Auto) Lymph # [place] # Seg Neutrophils % Glucose Total Bilirubin Total Creatine Kinase 946 H 948 H CK-MB (CK-2) 7.1 H 7.6 H Troponin T 0.450 H* D 0.487 H* Albumin Urine WBC (Auto)
[2016-07-10] MEDS: PLAVIX PO SCH (10:34)
[2016-07-10] MEDS ORDERED: LOPRESSOR IV PRN (11:24)
--- NOTE | 2016-07-10 11:26 | Progress Note ---
Assessment and Plan Initiate PO amiodarone 400mg QID. Intravenous heparin if and when alright from a neurology standpoint. - Patient Problems (1) Acute CVA (cerebrovascular accident) Current Visit: Yes Status: Acute (2) Acute non-ST elevation myocardial infarction (NSTEMI) Current Visit: Yes Status: Acute (3) Accelerated hypertension Current Visit: Yes Status: Acute (4) Atrial fibrillation with rapid ventricular response Current Visit: Yes Status: Acute (5) Atrial fibrillation and flutter Current Visit: Yes Status: Acute (6) Noncompliance Current Visit: Yes Status: Acute Subjective Date of service: 07/10/16 Principal diagnosis: atrial fibrillation, L MCA stoke Interval history: The patient is resting in bed. He remains aphasic and minimally responsive to noxious stimuli. Atrial flutter with HR 130s on the monitor. Objective Last Vital Signs Temp 98 F 07/10/16 08:10 Pulse 132 H 07/10/16 10:00 Resp 21 07/10/16 10:00 BP 126/93 07/10/16 10:00 Pulse Ox 99 07/10/16 10:00 - Physical Examination General: No Apparent Distress (aphasic) HEENT: Positive: Normocephaly, Mucus Membranes Moist Neck: Positive: neck supple, trachea midline Cardiac: Positive: irregularly irregular, S1/S2 Lungs: Positive: clear to auscultation Neuro: Positive: Other (left hemiparesis with aphasia) Abdomen: Positive: Soft, Active Bowel Sounds. Negative: Tender Skin: Positive: Clear. Negative: Rash Musculoskeletal: No Fluid Collection Extremities: Present: normal. Absent: edema - Labs and Meds Cardiac Enzymes 07/09/16 07/09/16 Range/Units 12:57 16:58 CK-MB (CK-2) 7.1 H 7.6 H (0.0-4.0) ng/mL - Imaging and Cardiology EKG: image reviewed Echo: report reviewed (06/2016: EF 50-55%) - Telemetry EKG Rhythm: Atrial Fibrillation Repolarization changes or abnormalities: ST or T wave suggestive of ischemia
--- NOTE | 2016-07-10 11:37 | Progress Note ---
Assessment and Plan Assessment and plan: Acute ischemic stroke. Plavix. PT/OT eval. Neurology following. Dysphagia. Tube feeding. Speech pathologist following Rapid atrial fibrillation. Followed by cardiology. On Lopressor and amiodarone. Neurology does not recommend starting anticoagulation at this time because of risk of hemorrhage Encephalopathy due to acute stroke DVT prophylaxis. SCds only Full code status. History Interval history: patient with stroke, non verbal, dysphagia Hospitalist Physical - Physical exam Narrative exam: Gen: Not in acute distress, Neck:supple, no JVD HEENT: Normocephalic, atraumatic Lungs:Clear to auscultation bilaterally, no rales or wheeze Heart:S1 and S2 irreg, rapid, no murmurs,rubs or gallop Abdomen:soft, non tender, non distended, normal bowel sounds Ext: No edema, clubbing or cyanosis Neuro: Lethargic,aphasia - Constitutional Vitals: Temp Pulse Resp BP Pulse Ox 98 F 132 H 21 126/93 99 07/10/16 08:10 07/10/16 10:00 07/10/16 10:00 07/10/16 10:00 07/10/16 10:00 General appearance: Present: mild distress, other (sedated for MRI) Results - Labs CBC & Chem 7: 07/11/16 06:27 07/14/16 09:05 Labs: Laboratory Last Values WBC 9.0 K/mm3 (4.5-11.0) 07/09/16 05:58 RBC 5.70 M/mm3 (3.65-5.03) H 07/09/16 05:58 Hgb 14.5 gm/dl (11.8-15.2) 07/09/16 05:58 Hct 45.0 % (35.5-45.6) 07/09/16 05:58 MCV 79 fl (84-94) L 07/09/16 05:58 MCH 25 pg (28-32) L 07/09/16 05:58 MCHC 32 % (32-34) 07/09/16 05:58 RDW 14.7 % (13.2-15.2) 07/09/16 05:58 Plt Count 131 K/mm3 (140-440) L 07/09/16 05:58 Lymph % (Auto) 11.6 % (13.4-35.0) L 07/09/16 05:58 [place] % (Auto) 10.0 % (0.0-7.3) H 07/09/16 05:58 Eos % (Auto) 0.0 % (0.0-4.3) 07/09/16 05:58 Baso % (Auto) 0.8 % (0.0-1.8) 07/09/16 05:58 Lymph # 1.0 K/mm3 (1.2-5.4) L 07/09/16 05:58 [place] # 0.9 K/mm3 (0.0-0.8) H 07/09/16 05:58 Eos # 0.0 K/mm3 (0.0-0.4) 07/09/16 05:58 Baso # 0.1 K/mm3 (0.0-0.1) 07/09/16 05:58 Seg Neutrophils % 77.6 % (40.0-70.0) H 07/09/16 05:58 Seg Neutrophils # 7.0 K/mm3 (1.8-7.7) 07/09/16 05:58 PT 14.5 Sec. (12.2-14.9) 07/08/16 10:43 INR 1.14 (0.87-1.13) H 07/08/16 10:43 APTT 29.6 Sec. (24.2-36.6) 07/08/16 10:43 Thrombin Time 17.8 Sec. (15.1-19.6) 07/08/16 10:43 Sodium 139 mmol/L (137-145) 07/09/16 05:58 Potassium 4.0 mmol/L (3.6-5.0) 07/09/16 05:58 Chloride 98.1 mmol/L (98-107) 07/09/16 05:58 Carbon Dioxide 27 mmol/L (22-30) 07/09/16 05:58 Anion Gap 18 mmol/L 07/09/16 05:58 BUN 18 mg/dL (9-20) 07/09/16 05:58 Creatinine 0.9 mg/dL (0.8-1.5) 07/09/16 05:58 Estimated GFR > 60 ml/min 07/09/16 05:58 BUN/Creatinine Ratio 20.00 % 07/09/16 05:58 Glucose 140 mg/dL (75-100) H 07/09/16 05:58 Calcium 9.2 mg/dL (8.4-10.2) 07/09/16 05:58 Total Bilirubin 1.5 mg/dL (0.1-1.2) H 07/09/16 05:58 AST 38 units/L (5-40) 07/09/16 05:58 ALT 23 units/L (7-56) 07/09/16 05:58 Alkaline Phosphatase 72 units/L (35-129) 07/09/16 05:58 Total Creatine Kinase 948 units/L (55-170) H 07/09/16 16:58 CK-MB (CK-2) 7.6 ng/mL (0.0-4.0) H 07/09/16 16:58 CK-MB (CK-2) Rel Index 0.8 (0-4) 07/09/16 16:58 Troponin T 0.487 ng/mL (0.00-0.029) H* 07/09/16 16:58 Total Protein 7.4 g/dL (6.3-8.2) 07/09/16 05:58 Albumin 3.6 g/dL (3.9-5) L 07/09/16 05:58 Albumin/Globulin Ratio 0.9 % 07/09/16 05:58 Triglycerides 50 mg/dL (2-149) 07/08/16 10:43 Cholesterol 207 mg/dL (50-199) H 07/08/16 10:43 LDL Cholesterol Direct 121 mg/dL (50-130) 07/08/16 10:43 HDL Cholesterol 76 mg/dL (40-59) H 07/08/16 10:43 Cholesterol/HDL Ratio 2.72 % 07/08/16 10:43 TSH 1.440 mlU/mL (0.270-4.200) 07/09/16 21:31 Free T4 1.03 ng/dL (0.76-1.46) 07/09/16 21:31 Urine Color Red (Yellow) 07/08/16 14:47 Urine Turbidity Slightly-cloudy (Clear) 07/08/16 14:47 Urine pH 7.0 (5.0-7.0) 07/08/16 14:47 Ur Specific [place] 1.014 (1.003-1.030) 07/08/16 14:47 Urine Protein 100 mg/dl mg/dL (Negative) 07/08/16 14:47 Urine Glucose (UA) Neg mg/dL (Negative) 07/08/16 14:47 Urine Ketones Neg mg/dL (Negative) 07/08/16 14:47 Urine Blood Lg (Negative) 07/08/16 14:47 Urine Nitrite Neg (Negative) 07/08/16 14:47 Urine Bilirubin Neg (Negative) 07/08/16 14:47 Urine Urobilinogen < 2.0 mg/dL (<2.0) 07/08/16 14:47 Ur Leukocyte Esterase Mod (Negative) 07/08/16 14:47 Urine WBC (Auto) 36.0 /HPF (0.0-6.0) H 07/08/16 14:47 Urine RBC (Auto) > 182.0 /HPF (0.0-6.0) 07/08/16 14:47 U Epithel Cells (Auto) 1.0 /HPF (0-13.0) 07/08/16 14:47 Urine Bacteria (Auto) 1+ /HPF (Negative) 07/08/16 14:47 Urine Yeast (Budding) Few /HPF 07/08/16 14:47
[2016-07-10] MEDS ORDERED: SODIUM BICARBONATE FEEDTUBE PRN (12:44)
[2016-07-10] MEDS ORDERED: PANCREAZE DR 10,500 UNIT FEEDTUBE PRN (12:44)
[2016-07-10] MEDS ORDERED: SIMPLE SYRUP FEEDTUBE PRN ×2 (12:44)
[2016-07-10] MEDS: HEPARIN SUB-Q SCH ×2 (13:45→21:42)
[2016-07-10] MEDS: CORDARONE PO SCH ×3 (13:45→21:42)
--- NOTE | 2016-07-10 14:18 | Progress Note ---
Assessment and Plan 89 y/o male with afib with RVR and prior history of stroke. 1. Per Neuro, wait 7-10 before therapeutic anticoagulation. 2. DVT prophylaxis 3. Cards started on PO amiodarone 4. Stable for transfer out of ICU Subjective Date of service: 07/10/16 Principal diagnosis: atrial fibrillation, L MCA stoke Interval history: No acute events. OFF continuous infusion for Afib. Objective - Constitutional Vitals: Vital Signs - 12hr 07/10/16 07/10/16 07/10/16 03:00 04:00 04:06 Temperature 98.3 F Pulse Rate 114 H 94 H 107 H Pulse Rate [ 98 H From Monitor] Respiratory 21 15 Rate Blood Pressure 158/119 184/122 184/122 O2 Sat by Pulse 98 98 Oximetry 07/10/16 07/10/16 07/10/16 04:30 05:00 05:15 Temperature Pulse Rate 116 H 131 H 109 H Pulse Rate [ From Monitor] Respiratory 24 Rate Blood Pressure 170/79 170/79 O2 Sat by Pulse 99 Oximetry 07/10/16 07/10/16 07/10/16 06:00 07:00 07:31 Temperature Pulse Rate 122 H 114 H 114 H Pulse Rate [ From Monitor] Respiratory 18 20 Rate Blood Pressure 149/88 156/100 156/100 O2 Sat by Pulse 99 99 Oximetry 07/10/16 07/10/16 07/10/16 08:00 08:10 09:00 Temperature 98 F Pulse Rate 129 H 109 H Pulse Rate [ 130 H From Monitor] Respiratory 21 20 Rate Blood Pressure 134/102 139/90 O2 Sat by Pulse 99 100 Oximetry 07/10/16 07/10/16 07/10/16 09:01 10:00 11:00 Temperature Pulse Rate 132 H 132 H Pulse Rate [ 111 H From Monitor] Respiratory 21 17 Rate Blood Pressure 126/93 121/77 O2 Sat by Pulse 99 99 99 Oximetry 07/10/16 07/10/16 07/10/16 12:00 12:30 12:55 Temperature 98 F Pulse Rate 115 H 130 H Pulse Rate [ 132 H From Monitor] Respiratory 25 H Rate Blood Pressure 133/91 126/86 O2 Sat by Pulse 97 100 Oximetry - Labs CBC & Chem 7: 07/09/16 05:58 07/09/16 05:58 Labs: Abnormal lab results 03/28/17 Range/Units 16:58 Total Creatine Kinase 948 H (55-170) units/L CK-MB (CK-2) 7.6 H (0.0-4.0) ng/mL Troponin T 0.487 H* (0.00-0.029) ng/mL
[2016-07-10] MEDS: ZOCOR PO SCH (21:43)
[2016-07-11] MEDS: HEPARIN SUB-Q SCH ×3 (06:15→23:03)
[2016-07-11] MEDS: NACL 0.9% 1000 ML 1,000 ML IV SCH (06:15)
[2016-07-11 07:12] LABS: Hematocrit 39.9 % (35.5-45.6); Mean Corpuscular HGB Conc 33 % (32-34); Mean Corpuscular Volume 79 fl (84-94); Platelet Count 144 K/mm3 (140-440); Red Blood Count 5.06 M/mm3 (3.65-5.03); Red Cell Distribution Width 14.2 % (13.2-15.2); White Blood Count 6.1 K/mm3 (4.5-11.0)
[2016-07-11 07:19] LABS: Mean Corpuscular Hemoglobin 26 pg (28-32)
[2016-07-11 07:42] LABS: Anion Gap 19 mmol/L; Blood Urea Nitrogen 39 mg/dL (9-20); Calcium 8.8 mg/dL (8.4-10.2); Carbon Dioxide 22 mmol/L (22-30); Chloride 101.9 mmol/L (98-107); Glucose 145 mg/dL (75-100); Potassium 3.7 mmol/L (3.6-5.0); Sodium 139 mmol/L (137-145)
--- NOTE | 2016-07-11 08:25 | Vascular Lab Report ---
CAROTID DUPLEX STUDY: RIGHT PSVEDV CCA PROX:44025 CCA DIST:[id number] ICA PROX: 9216 ICA MID: 5911 ICA DIST: 5116 ECA: 9915 VERT: 48 13 LEFT PSVEDV CCA PROX:56117 CCA DIST:68198 ICA PROX:49549 ICA MID:91900 ICA DIST: 6517 ECA: 159 7 VERT: 65 10 REASON FOR EXAM: Stroke. COMMENTS ON THE RIGHT: Doppler frequency analysis is consistent with 16 to 49 percent diameter reduction of the internal carotid artery. Minimal amount of plaque is seen. The common carotid artery is patent. The external carotid artery is patent. The vertebral artery has antegrade flow. COMMENTS ON THE LEFT: Doppler frequency analysis is consistent with 16 to 49 percent diameter reduction of the internal carotid artery. Minimal amount of plaque is seen. The common carotid artery is patent. The external carotid artery is patent. The vertebral artery has antegrade flow. IMPRESSION: Less than 50% diameter reduction in the internal carotid arteries bilaterally. Consider repeat carotid artery duplex in 12 months.
--- NOTE | 2016-07-11 11:45 | Progress Note ---
Assessment and Plan Continue current management. Per neuro recommendations, wait 7-10 days before therapeutic anticoagulation. - Patient Problems (1) Acute CVA (cerebrovascular accident) Current Visit: Yes Status: Acute (2) Acute non-ST elevation myocardial infarction (NSTEMI) Current Visit: Yes Status: Acute (3) Accelerated hypertension Current Visit: Yes Status: Acute (4) Atrial fibrillation with rapid ventricular response Current Visit: Yes Status: Acute (5) Atrial fibrillation and flutter Current Visit: Yes Status: Acute (6) Noncompliance Current Visit: Yes Status: Acute Subjective Date of service: 07/11/16 Principal diagnosis: atrial fibrillation, L MCA stoke Interval history: The patient is resting in bed. He is aphasic. No acute distress noted. Atrial fibrillation with HR low 100s on the monitor. Objective Last Vital Signs Temp 98.1 F 07/11/16 07:00 Pulse 85 07/11/16 07:00 Resp 18 07/11/16 07:00 BP 150/93 07/11/16 07:00 Pulse Ox 99 07/11/16 07:00 - Physical Examination General: No Apparent Distress (aphasic) HEENT: Positive: Normocephaly, Mucus Membranes Moist Neck: Positive: neck supple, trachea midline Cardiac: Positive: irregularly irregular, S1/S2 Lungs: Positive: clear to auscultation Neuro: Positive: Other (left hemiparesis with aphasia) Abdomen: Positive: Soft, Active Bowel Sounds. Negative: Tender Skin: Positive: Clear. Negative: Rash Musculoskeletal: No Fluid Collection Extremities: Present: normal. Absent: edema - Labs and Meds CBC 07/11/16 Range/Units 06:27 WBC 6.1 (4.5-11.0) K/mm3 RBC 5.06 H (3.65-5.03) M/mm3 Hgb 13.0 (11.8-15.2) gm/dl Hct 39.9 (35.5-45.6) % Plt Count 144 (140-440) K/mm3 Comprehensive Metabolic Panel 07/11/16 Range/Units 06:27 Sodium 139 (137-145) mmol/L Potassium 3.7 (3.6-5.0) mmol/L Chloride 101.9 (98-107) mmol/L Carbon Dioxide 22 (22-30) mmol/L BUN 39 H (9-20) mg/dL Creatinine 1.0 (0.8-1.5) mg/dL Glucose 145 H (75-100) mg/dL Calcium 8.8 (8.4-10.2) mg/dL - Imaging and Cardiology EKG: image reviewed Echo: report reviewed (06/2016: EF 50-55%) - Telemetry EKG Rhythm: Atrial Fibrillation Repolarization changes or abnormalities: ST or T wave suggestive of ischemia
--- NOTE | 2016-07-11 15:21 | Progress Note ---
Assessment and Plan Assessment and plan: Acute ischemic stroke. Plavix. PT/OT eval. Neurology following. Dysphagia. Tube feeding. Speech pathologist following Rapid atrial fibrillation. Followed by cardiology. On Lopressor and amiodarone. Dose of beta blockers increased. Neurology does not recommend starting anticoagulation at this time because of risk of hemorrhage Encephalopathy due to acute stroke DVT prophylaxis. SCds only Full code status. History Interval history: patient with stroke, non verbal, dysphagia Hospitalist Physical - Physical exam Narrative exam: Gen: Not in acute distress, Neck:supple, no JVD HEENT: Normocephalic, atraumatic Lungs:Clear to auscultation bilaterally, no rales or wheeze Heart:S1 and S2 irreg, rapid, no murmurs,rubs or gallop Abdomen:soft, non tender, non distended, normal bowel sounds Ext: No edema, clubbing or cyanosis Neuro: Lethargic,aphasia - Constitutional Vitals: Temp Pulse Resp BP Pulse Ox 98.5 F 112 H 18 138/89 99 07/11/16 12:00 07/11/16 12:00 07/11/16 12:00 07/11/16 12:00 07/11/16 12:00 General appearance: Present: mild distress, other (sedated for MRI) Results - Labs CBC & Chem 7: 07/11/16 06:27 07/14/16 09:05 Labs: Laboratory Last Values WBC 6.1 K/mm3 (4.5-11.0) 07/11/16 06:27 RBC 5.06 M/mm3 (3.65-5.03) H 07/11/16 06:27 Hgb 13.0 gm/dl (11.8-15.2) 07/11/16 06:27 Hct 39.9 % (35.5-45.6) 07/11/16 06:27 MCV 79 fl (84-94) L 07/11/16 06:27 MCH 26 pg (28-32) L 07/11/16 06:27 MCHC 33 % (32-34) 07/11/16 06:27 RDW 14.2 % (13.2-15.2) 07/11/16 06:27 Plt Count 144 K/mm3 (140-440) 07/11/16 06:27 Lymph % (Auto) 11.6 % (13.4-35.0) L 07/09/16 05:58 [place] % (Auto) 10.0 % (0.0-7.3) H 07/09/16 05:58 Eos % (Auto) 0.0 % (0.0-4.3) 07/09/16 05:58 Baso % (Auto) 0.8 % (0.0-1.8) 07/09/16 05:58 Lymph # 1.0 K/mm3 (1.2-5.4) L 07/09/16 05:58 [place] # 0.9 K/mm3 (0.0-0.8) H 07/09/16 05:58 Eos # 0.0 K/mm3 (0.0-0.4) 07/09/16 05:58 Baso # 0.1 K/mm3 (0.0-0.1) 07/09/16 05:58 Seg Neutrophils % 77.6 % (40.0-70.0) H 07/09/16 05:58 Seg Neutrophils # 7.0 K/mm3 (1.8-7.7) 07/09/16 05:58 PT 14.5 Sec. (12.2-14.9) 07/08/16 10:43 INR 1.14 (0.87-1.13) H 07/08/16 10:43 APTT 29.6 Sec. (24.2-36.6) 07/08/16 10:43 Thrombin Time 17.8 Sec. (15.1-19.6) 07/08/16 10:43 Sodium 139 mmol/L (137-145) 07/11/16 06:27 Potassium 3.7 mmol/L (3.6-5.0) 07/11/16 06:27 Chloride 101.9 mmol/L (98-107) 07/11/16 06:27 Carbon Dioxide 22 mmol/L (22-30) 07/11/16 06:27 Anion Gap 19 mmol/L 07/11/16 06:27 BUN 39 mg/dL (9-20) H 07/11/16 06:27 Creatinine 1.0 mg/dL (0.8-1.5) 07/11/16 06:27 Estimated GFR > 60 ml/min 07/11/16 06:27 BUN/Creatinine Ratio 39.00 % 07/11/16 06:27 Glucose 145 mg/dL (75-100) H 07/11/16 06:27 POC Glucose 108 (70-105) H 07/10/16 21:40 Calcium 8.8 mg/dL (8.4-10.2) 07/11/16 06:27 Total Bilirubin 1.5 mg/dL (0.1-1.2) H 07/09/16 05:58 AST 38 units/L (5-40) 07/09/16 05:58 ALT 23 units/L (7-56) 07/09/16 05:58 Alkaline Phosphatase 72 units/L (35-129) 07/09/16 05:58 Total Creatine Kinase 948 units/L (55-170) H 07/09/16 16:58 CK-MB (CK-2) 7.6 ng/mL (0.0-4.0) H 07/09/16 16:58 CK-MB (CK-2) Rel Index 0.8 (0-4) 07/09/16 16:58 Troponin T 0.487 ng/mL (0.00-0.029) H* 07/09/16 16:58 Total Protein 7.4 g/dL (6.3-8.2) 07/09/16 05:58 Albumin 3.6 g/dL (3.9-5) L 07/09/16 05:58 Albumin/Globulin Ratio 0.9 % 07/09/16 05:58 Triglycerides 50 mg/dL (2-149) 07/08/16 10:43 Cholesterol 207 mg/dL (50-199) H 07/08/16 10:43 LDL Cholesterol Direct 121 mg/dL (50-130) 07/08/16 10:43 HDL Cholesterol 76 mg/dL (40-59) H 07/08/16 10:43 Cholesterol/HDL Ratio 2.72 % 07/08/16 10:43 TSH 1.440 mlU/mL (0.270-4.200) 07/09/16 21:31 Free T4 1.03 ng/dL (0.76-1.46) 07/09/16 21:31 Urine Color Red (Yellow) 07/08/16 14:47 Urine Turbidity Slightly-cloudy (Clear) 07/08/16 14:47 Urine pH 7.0 (5.0-7.0) 07/08/16 14:47 Ur Specific [place] 1.014 (1.003-1.030) 07/08/16 14:47 Urine Protein 100 mg/dl mg/dL (Negative) 07/08/16 14:47 Urine Glucose (UA) Neg mg/dL (Negative) 07/08/16 14:47 Urine Ketones Neg mg/dL (Negative) 07/08/16 14:47 Urine Blood Lg (Negative) 07/08/16 14:47 Urine Nitrite Neg (Negative) 07/08/16 14:47 Urine Bilirubin Neg (Negative) 07/08/16 14:47 Urine Urobilinogen < 2.0 mg/dL (<2.0) 07/08/16 14:47 Ur Leukocyte Esterase Mod (Negative) 07/08/16 14:47 Urine WBC (Auto) 36.0 /HPF (0.0-6.0) H 07/08/16 14:47 Urine RBC (Auto) > 182.0 /HPF (0.0-6.0) 07/08/16 14:47 U Epithel Cells (Auto) 1.0 /HPF (0-13.0) 07/08/16 14:47 Urine Bacteria (Auto) 1+ /HPF (Negative) 07/08/16 14:47 Urine Yeast (Budding) Few /HPF 07/08/16 14:47
--- NOTE | 2016-07-11 15:45 | Progress Note ---
Assessment and Plan 89 y/o male with afib with RVR and prior history of stroke. 1. Per Neuro, wait 7-10 before therapeutic anticoagulation. 2. DVT prophylaxis 3. Cards started on PO amiodarone 4. Will sign off as critical care issues have resolved. Subjective Date of service: 07/11/16 Principal diagnosis: atrial fibrillation, L MCA stoke Interval history: Successful transfer out of ICU. Objective - Constitutional Vitals: Vital Signs - 12hr 07/11/16 07/11/16 07/11/16 05:18 07:00 12:00 Temperature 98.2 F 98.1 F 98.5 F Pulse Rate [ 119 H 85 112 H Left Radial] Respiratory 20 18 18 Rate Blood Pressure 164/95 150/93 138/89 [Left Arm] O2 Sat by Pulse 98 99 99 Oximetry - Labs CBC & Chem 7: 07/11/16 06:27 07/11/16 06:27 Labs: Abnormal lab results 07/10/16 07/11/16 07/11/16 Range/Units 21:40 06:27 06:27 RBC 5.06 H (3.65-5.03) M/mm3 MCV 79 L (84-94) fl MCH 26 L (28-32) pg BUN 39 H (9-20) mg/dL Glucose 145 H (75-100) mg/dL POC Glucose 108 H (70-105)
[2016-07-11] MEDS: CORDARONE PO SCH ×2 (18:48→18:56)
[2016-07-11] MEDS: LOPRESSOR PO SCH ×2 (18:49→23:03)
[2016-07-11] MEDS: PLAVIX PO SCH (18:53)
[2016-07-11] MEDS ORDERED: APRESOLINE IV ONE (20:29)
--- NOTE | 2016-07-12 02:04 | XRay Report ---
FINAL REPORT PROCEDURE: XR ABDOMEN 1V AP TECHNIQUE: One film obtained which is a single AP view covering the upper abdomen and most of the chest. The lower abdomen is not included. HISTORY: Evaluate Dobhoff feeding tube placement COMPARISON: There no prior plain films to compare FINDINGS: The distal aspect of the NG tube projects just slightly beyond the GE junction in the upper body or fundus of the stomach. The tip projects about 3 centimeters beyond GE junction. The bowel gas pattern of the upper abdomen is nonspecific. The mid and lower abdomen are not included. The heart shows moderate enlargement IMPRESSION: The tip of the NG tube projects about 3 centimeters beyond the GE junction in the upper body or fundus of the stomach.
[2016-07-12] MEDS: CORDARONE PO SCH ×6 (02:57→21:55)
[2016-07-12] MEDS: ZOCOR PO SCH ×3 (02:57→21:55)
[2016-07-12] MEDS: LOPRESSOR PO SCH ×5 (02:57→21:54)
[2016-07-12] MEDS: NACL 0.9% 1000 ML 1,000 ML IV SCH ×2 (03:26→17:51)
[2016-07-12] MEDS ORDERED: LOPRESSOR IV ONE (04:22)
--- NOTE | 2016-07-12 04:38 | XRay Report ---
FINAL REPORT PROCEDURE: XR ABDOMEN 1V AP TECHNIQUE: Abdominal radiograph, single supine AP view. HISTORY: Dobhoff placement COMPARISON: No prior studies are available for comparison. FINDINGS: Bowel gas pattern:Nonobstructive. There is a large amount of stool in the colon. Masses or calcifications:None. Bony structures:No significant abnormality. Other:Dobhoff tube is in the stomach.. IMPRESSION: No acute abnormality. The Doppler off tube is in the stomach.
[2016-07-12] MEDS: HEPARIN SUB-Q SCH ×3 (05:02→21:55)
[2016-07-12 07:13] LABS: Anion Gap 16 mmol/L; Blood Urea Nitrogen 26 mg/dL (9-20); Calcium 8.7 mg/dL (8.4-10.2); Carbon Dioxide 24 mmol/L (22-30); Chloride 103.2 mmol/L (98-107); Glucose 119 mg/dL (75-100); Potassium 3.5 mmol/L (3.6-5.0); Sodium 140 mmol/L (137-145)
[2016-07-12] MEDS: PERCOCET 5/325 PO PRN ×2 (10:22→17:51)
[2016-07-12] MEDS: PLAVIX PO SCH (10:23)
[2016-07-12] MEDS: POTASSIUM CHLORIDE FEEDTUBE SCH ×2 (10:23→15:15)
--- NOTE | 2016-07-12 11:02 | Progress Note ---
Assessment and Plan Continue current management. Per neuro recommendations, wait 7-10 days before therapeutic anticoagulation. - Patient Problems (1) Acute CVA (cerebrovascular accident) Current Visit: Yes Status: Acute (2) Acute non-ST elevation myocardial infarction (NSTEMI) Current Visit: Yes Status: Acute (3) Accelerated hypertension Current Visit: Yes Status: Acute (4) Atrial fibrillation with rapid ventricular response Current Visit: Yes Status: Acute (5) Atrial fibrillation and flutter Current Visit: Yes Status: Acute (6) Noncompliance Current Visit: Yes Status: Acute Subjective Date of service: 07/12/16 Principal diagnosis: atrial fibrillation, L MCA stoke Interval history: The patient is resting in bed. He is aphasic. No acute distress noted. Objective Last Vital Signs Temp 98.8 F 07/12/16 08:00 Pulse 123 H 07/12/16 10:23 Resp 18 07/12/16 08:00 BP 178/93 07/12/16 10:23 Pulse Ox 99 07/12/16 08:00 - Physical Examination General: No Apparent Distress (aphasic) HEENT: Positive: Normocephaly, Mucus Membranes Moist Neck: Positive: neck supple, trachea midline Cardiac: Positive: irregularly irregular, S1/S2 Lungs: Positive: clear to auscultation Neuro: Positive: Other (left hemiparesis with aphasia) Abdomen: Positive: Soft, Active Bowel Sounds. Negative: Tender Skin: Positive: Clear. Negative: Rash Musculoskeletal: No Fluid Collection Extremities: Present: normal. Absent: edema - Labs and Meds Comprehensive Metabolic Panel 07/12/16 Range/Units 06:18 Sodium 140 (137-145) mmol/L Potassium 3.5 L (3.6-5.0) mmol/L Chloride 103.2 (98-107) mmol/L Carbon Dioxide 24 (22-30) mmol/L BUN 26 H (9-20) mg/dL Creatinine 0.8 (0.8-1.5) mg/dL Glucose 119 H (75-100) mg/dL Calcium 8.7 (8.4-10.2) mg/dL - Imaging and Cardiology EKG: image reviewed Echo: report reviewed (06/2016: EF 50-55%) - Telemetry EKG Rhythm: Atrial Fibrillation Repolarization changes or abnormalities: ST or T wave suggestive of ischemia
--- NOTE | 2016-07-12 16:06 | Event Note ---
Date: 07/12/16 IPR F/U, s/p left frontal and parietal lobe CVA. Pt is more alert on today, however, is noted to be aphasic. Dobhoff remains in place; pending CLERGY MEMBER evaluation to assess swallowing. Pt is also on restraints due to attempting to pull out Dobhoff/IV. Will continue to follow progress with therapies and alertness.
--- NOTE | 2016-07-12 16:36 | Progress Note ---
Assessment and Plan Assessment and plan: Acute ischemic stroke. Plavix. PT/OT evaluation ongoing. Neurology following. Dysphagia. Tube feeding. Speech pathologist following. Rapid atrial fibrillation. Followed by cardiology. On Lopressor and amiodarone. Dose of beta blockers increased. Neurology does not recommend starting anticoagulation at this time because of risk of hemorrhage. Hypertension. Metoprolol Encephalopathy due to acute stroke DVT prophylaxis. SCds only Full code status. History Interval history: patient with stroke, non verbal, dysphagia Hospitalist Physical - Physical exam Narrative exam: Gen: Not in acute distress, Neck:supple, no JVD HEENT: Normocephalic, atraumatic Lungs:Clear to auscultation bilaterally, no rales or wheeze Heart:S1 and S2 irreg, rapid, no murmurs,rubs or gallop Abdomen:soft, non tender, non distended, normal bowel sounds Ext: No edema, clubbing or cyanosis Neuro: Lethargic,aphasia - Constitutional Vitals: Temp Pulse Resp BP Pulse Ox 98.9 F 108 H 20 178/93 98 07/12/16 10:00 07/12/16 15:14 07/12/16 10:00 07/12/16 10:23 07/12/16 10:00 General appearance: Present: mild distress, other (sedated for MRI) Results - Labs CBC & Chem 7: 07/11/16 06:27 07/14/16 09:05 Labs: Laboratory Last Values WBC 6.1 K/mm3 (4.5-11.0) 07/11/16 06:27 RBC 5.06 M/mm3 (3.65-5.03) H 07/11/16 06:27 Hgb 13.0 gm/dl (11.8-15.2) 07/11/16 06:27 Hct 39.9 % (35.5-45.6) 07/11/16 06:27 MCV 79 fl (84-94) L 07/11/16 06:27 MCH 26 pg (28-32) L 07/11/16 06:27 MCHC 33 % (32-34) 07/11/16 06:27 RDW 14.2 % (13.2-15.2) 07/11/16 06:27 Plt Count 144 K/mm3 (140-440) 07/11/16 06:27 Lymph % (Auto) 11.6 % (13.4-35.0) L 07/09/16 05:58 [place] % (Auto) 10.0 % (0.0-7.3) H 07/09/16 05:58 Eos % (Auto) 0.0 % (0.0-4.3) 07/09/16 05:58 Baso % (Auto) 0.8 % (0.0-1.8) 07/09/16 05:58 Lymph # 1.0 K/mm3 (1.2-5.4) L 07/09/16 05:58 [place] # 0.9 K/mm3 (0.0-0.8) H 07/09/16 05:58 Eos # 0.0 K/mm3 (0.0-0.4) 07/09/16 05:58 Baso # 0.1 K/mm3 (0.0-0.1) 07/09/16 05:58 Seg Neutrophils % 77.6 % (40.0-70.0) H 07/09/16 05:58 Seg Neutrophils # 7.0 K/mm3 (1.8-7.7) 07/09/16 05:58 PT 14.5 Sec. (12.2-14.9) 07/08/16 10:43 INR 1.14 (0.87-1.13) H 07/08/16 10:43 APTT 29.6 Sec. (24.2-36.6) 07/08/16 10:43 Thrombin Time 17.8 Sec. (15.1-19.6) 07/08/16 10:43 Sodium 140 mmol/L (137-145) 07/12/16 06:18 Potassium 3.5 mmol/L (3.6-5.0) L 07/12/16 06:18 Chloride 103.2 mmol/L (98-107) 07/12/16 06:18 Carbon Dioxide 24 mmol/L (22-30) 07/12/16 06:18 Anion Gap 16 mmol/L 07/12/16 06:18 BUN 26 mg/dL (9-20) H 07/12/16 06:18 Creatinine 0.8 mg/dL (0.8-1.5) 07/12/16 06:18 Estimated GFR > 60 ml/min 07/12/16 06:18 BUN/Creatinine Ratio 32.50 % 07/12/16 06:18 Glucose 119 mg/dL (75-100) H 07/12/16 06:18 POC Glucose 183 (70-105) H 07/12/16 13:58 Calcium 8.7 mg/dL (8.4-10.2) 07/12/16 06:18 Total Bilirubin 1.5 mg/dL (0.1-1.2) H 07/09/16 05:58 AST 38 units/L (5-40) 07/09/16 05:58 ALT 23 units/L (7-56) 07/09/16 05:58 Alkaline Phosphatase 72 units/L (35-129) 07/09/16 05:58 Total Creatine Kinase 948 units/L (55-170) H 07/09/16 16:58 CK-MB (CK-2) 7.6 ng/mL (0.0-4.0) H 07/09/16 16:58 CK-MB (CK-2) Rel Index 0.8 (0-4) 07/09/16 16:58 Troponin T 0.487 ng/mL (0.00-0.029) H* 07/09/16 16:58 Total Protein 7.4 g/dL (6.3-8.2) 07/09/16 05:58 Albumin 3.6 g/dL (3.9-5) L 07/09/16 05:58 Albumin/Globulin Ratio 0.9 % 07/09/16 05:58 Triglycerides 50 mg/dL (2-149) 07/08/16 10:43 Cholesterol 207 mg/dL (50-199) H 07/08/16 10:43 LDL Cholesterol Direct 121 mg/dL (50-130) 07/08/16 10:43 HDL Cholesterol 76 mg/dL (40-59) H 07/08/16 10:43 Cholesterol/HDL Ratio 2.72 % 07/08/16 10:43 TSH 1.440 mlU/mL (0.270-4.200) 07/09/16 21:31 Free T4 1.03 ng/dL (0.76-1.46) 07/09/16 21:31 Urine Color Red (Yellow) 07/08/16 14:47 Urine Turbidity Slightly-cloudy (Clear) 07/08/16 14:47 Urine pH 7.0 (5.0-7.0) 07/08/16 14:47 Ur Specific [place] 1.014 (1.003-1.030) 07/08/16 14:47 Urine Protein 100 mg/dl mg/dL (Negative) 07/08/16 14:47 Urine Glucose (UA) Neg mg/dL (Negative) 07/08/16 14:47 Urine Ketones Neg mg/dL (Negative) 07/08/16 14:47 Urine Blood Lg (Negative) 07/08/16 14:47 Urine Nitrite Neg (Negative) 07/08/16 14:47 Urine Bilirubin Neg (Negative) 07/08/16 14:47 Urine Urobilinogen < 2.0 mg/dL (<2.0) 07/08/16 14:47 Ur Leukocyte Esterase Mod (Negative) 07/08/16 14:47 Urine WBC (Auto) 36.0 /HPF (0.0-6.0) H 07/08/16 14:47 Urine RBC (Auto) > 182.0 /HPF (0.0-6.0) 07/08/16 14:47 U Epithel Cells (Auto) 1.0 /HPF (0-13.0) 07/08/16 14:47 Urine Bacteria (Auto) 1+ /HPF (Negative) 07/08/16 14:47 Urine Yeast (Budding) Few /HPF 07/08/16 14:47
[2016-07-12] MEDS: APRESOLINE IV PRN (17:50)
[2016-07-13] MEDS: LOPRESSOR PO SCH ×4 (00:48→20:01)
[2016-07-13] MEDS: PERCOCET 5/325 PO PRN ×4 (00:50→22:06)
[2016-07-13] MEDS: HEPARIN SUB-Q SCH ×3 (06:05→22:06)
[2016-07-13 08:57] LABS: Anion Gap 14 mmol/L; BUN/Creatinine Ratio 28.75; Blood Urea Nitrogen 23 mg/dL (9-20); Calcium 8.7 mg/dL (8.4-10.2); Carbon Dioxide 25 mmol/L (22-30); Glucose 199 mg/dL (75-100); Potassium 3.7 mmol/L (3.6-5.0); Sodium 140 mmol/L (137-145)
[2016-07-13] MEDS: PLAVIX PO SCH (10:37)
[2016-07-13] MEDS: CORDARONE PO SCH ×4 (10:38→22:07)
--- NOTE | 2016-07-13 13:02 | Progress Note ---
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 Plavix. PT/OT evaluation ongoing. Neurology following. Dysphagia. Tube feeding. Speech pathologist recommends pureed diet. Start pureed diet.. Rapid atrial fibrillation. rate improving. He is followed by cardiology. On Lopressor and amiodarone. Neurology does not recommend starting anticoagulation at this time because of risk of intracranial hemorrhage. Hypertension. Metoprolol Encephalopathy due to acute stroke DVT prophylaxis. SCds only Full code status. History Interval history: patient with acute stroke, still non verbal, dysphagia Hospitalist Physical - Physical exam Narrative exam: Gen: Not in acute distress, Neck:supple, no JVD HEENT: Normocephalic, atraumatic Lungs:Clear to auscultation bilaterally, no rales or wheeze Heart:S1 and S2 irreg, rapid, no murmurs,rubs or gallop Abdomen:soft, non tender, non distended, normal bowel sounds Ext: No edema, clubbing or cyanosis Neuro: Lethargic,aphasia,right hemiparesis - Constitutional Vitals: Temp Pulse Resp BP Pulse Ox 97.5 F L 42 L 18 140/70 97 07/13/16 08:45 07/13/16 08:45 07/13/16 08:45 07/13/16 08:45 07/13/16 08:45 General appearance: Present: mild distress, other (sedated for MRI) Results - Labs CBC & Chem 7: 07/11/16 06:27 07/14/16 09:05 Labs: Laboratory Last Values WBC 6.1 K/mm3 (4.5-11.0) 07/11/16 06:27 RBC 5.06 M/mm3 (3.65-5.03) H 07/11/16 06:27 Hgb 13.0 gm/dl (11.8-15.2) 07/11/16 06:27 Hct 39.9 % (35.5-45.6) 07/11/16 06:27 MCV 79 fl (84-94) L 07/11/16 06:27 MCH 26 pg (28-32) L 07/11/16 06:27 MCHC 33 % (32-34) 07/11/16 06:27 RDW 14.2 % (13.2-15.2) 07/11/16 06:27 Plt Count 144 K/mm3 (140-440) 07/11/16 06:27 Lymph % (Auto) 11.6 % (13.4-35.0) L 07/09/16 05:58 [place] % (Auto) 10.0 % (0.0-7.3) H 07/09/16 05:58 Eos % (Auto) 0.0 % (0.0-4.3) 07/09/16 05:58 Baso % (Auto) 0.8 % (0.0-1.8) 07/09/16 05:58 Lymph # 1.0 K/mm3 (1.2-5.4) L 07/09/16 05:58 [place] # 0.9 K/mm3 (0.0-0.8) H 07/09/16 05:58 Eos # 0.0 K/mm3 (0.0-0.4) 07/09/16 05:58 Baso # 0.1 K/mm3 (0.0-0.1) 07/09/16 05:58 Seg Neutrophils % 77.6 % (40.0-70.0) H 07/09/16 05:58 Seg Neutrophils # 7.0 K/mm3 (1.8-7.7) 07/09/16 05:58 PT 14.5 Sec. (12.2-14.9) 07/08/16 10:43 INR 1.14 (0.87-1.13) H 07/08/16 10:43 APTT 29.6 Sec. (24.2-36.6) 07/08/16 10:43 Thrombin Time 17.8 Sec. (15.1-19.6) 07/08/16 10:43 Sodium 140 mmol/L (137-145) 07/13/16 07:20 Potassium 3.7 mmol/L (3.6-5.0) 07/13/16 07:20 Chloride 105.0 mmol/L (98-107) 07/13/16 07:20 Carbon Dioxide 25 mmol/L (22-30) 07/13/16 07:20 Anion Gap 14 mmol/L 07/13/16 07:20 BUN 23 mg/dL (9-20) H 07/13/16 07:20 Creatinine 0.8 mg/dL (0.8-1.5) 07/13/16 07:20 Estimated GFR > 60 ml/min 07/13/16 07:20 BUN/Creatinine Ratio 28.75 % 07/13/16 07:20 Glucose 199 mg/dL (75-100) H 07/13/16 07:20 POC Glucose 207 (70-105) H 07/13/16 12:22 Calcium 8.7 mg/dL (8.4-10.2) 07/13/16 07:20 Total Bilirubin 1.5 mg/dL (0.1-1.2) H 07/09/16 05:58 AST 38 units/L (5-40) 07/09/16 05:58 ALT 23 units/L (7-56) 07/09/16 05:58 Alkaline Phosphatase 72 units/L (35-129) 07/09/16 05:58 Total Creatine Kinase 948 units/L (55-170) H 07/09/16 16:58 CK-MB (CK-2) 7.6 ng/mL (0.0-4.0) H 07/09/16 16:58 CK-MB (CK-2) Rel Index 0.8 (0-4) 07/09/16 16:58 Troponin T 0.487 ng/mL (0.00-0.029) H* 07/09/16 16:58 Total Protein 7.4 g/dL (6.3-8.2) 07/09/16 05:58 Albumin 3.6 g/dL (3.9-5) L 07/09/16 05:58 Albumin/Globulin Ratio 0.9 % 07/09/16 05:58 Triglycerides 50 mg/dL (2-149) 07/08/16 10:43 Cholesterol 207 mg/dL (50-199) H 07/08/16 10:43 LDL Cholesterol Direct 121 mg/dL (50-130) 07/08/16 10:43 HDL Cholesterol 76 mg/dL (40-59) H 07/08/16 10:43 Cholesterol/HDL Ratio 2.72 % 07/08/16 10:43 TSH 1.440 mlU/mL (0.270-4.200) 07/09/16 21:31 Free T4 1.03 ng/dL (0.76-1.46) 07/09/16 21:31 Urine Color Red (Yellow) 07/08/16 14:47 Urine Turbidity Slightly-cloudy (Clear) 07/08/16 14:47 Urine pH 7.0 (5.0-7.0) 07/08/16 14:47 Ur Specific [place] 1.014 (1.003-1.030) 07/08/16 14:47 Urine Protein 100 mg/dl mg/dL (Negative) 07/08/16 14:47 Urine Glucose (UA) Neg mg/dL (Negative) 07/08/16 14:47 Urine Ketones Neg mg/dL (Negative) 07/08/16 14:47 Urine Blood Lg (Negative) 07/08/16 14:47 Urine Nitrite Neg (Negative) 07/08/16 14:47 Urine Bilirubin Neg (Negative) 07/08/16 14:47 Urine Urobilinogen < 2.0 mg/dL (<2.0) 07/08/16 14:47 Ur Leukocyte Esterase Mod (Negative) 07/08/16 14:47 Urine WBC (Auto) 36.0 /HPF (0.0-6.0) H 07/08/16 14:47 Urine RBC (Auto) > 182.0 /HPF (0.0-6.0) 07/08/16 14:47 U Epithel Cells (Auto) 1.0 /HPF (0-13.0) 07/08/16 14:47 Urine Bacteria (Auto) 1+ /HPF (Negative) 07/08/16 14:47 Urine Yeast (Budding) Few /HPF 07/08/16 14:47
[2016-07-13] MEDS: NACL 0.9% 1000 ML 1,000 ML IV SCH (15:49)
--- NOTE | 2016-07-13 16:06 | Progress Note ---
Assessment and Plan To continue current management.No anticoagulation at this time. - Patient Problems (1) Accelerated hypertension Current Visit: Yes Status: Resolved (2) Acute CVA (cerebrovascular accident) Current Visit: Yes Status: Acute (3) Acute non-ST elevation myocardial infarction (NSTEMI) Current Visit: Yes Status: Acute (4) Atrial fibrillation and flutter Current Visit: Yes Status: Acute (5) Elevated troponin Current Visit: Yes Status: Acute (6) Encephalopathy Current Visit: Yes Status: Acute (7) Noncompliance Current Visit: Yes Status: Acute Subjective Date of service: 07/13/16 Principal diagnosis: atrial fibrillation, L MCA [place] Interval history: Resting in bed. Not in distress. aphasic.Feeding tube in situ. Objective Vital Signs Temp Pulse Pulse Pulse Pulse Pulse Resp 07/13/16 10:00 92 H 92 H 07/13/16 08:45 97.5 F L 42 L 18 07/13/16 06:05 94 H 07/13/16 05:00 98.1 F 94 H 18 07/13/16 01:50 22 07/13/16 00:50 20 07/13/16 00:48 98 H 07/13/16 00:00 98.4 F 98 H 18 07/12/16 21:54 130 H 07/12/16 20:20 120 H 24 07/12/16 20:00 98.4 F 130 H 22 07/12/16 19:13 127 H 07/12/16 16:30 98.0 F 129 H 20 BP BP BP Pulse Ox 07/13/16 10:00 07/13/16 08:45 140/70 140/70 97 07/13/16 06:05 131/71 07/13/16 05:00 131/71 97 07/13/16 01:50 07/13/16 00:50 07/13/16 00:48 140/74 07/13/16 00:00 140/74 97 07/12/16 21:54 128/74 07/12/16 20:20 96 07/12/16 20:00 128/74 97 07/12/16 19:13 07/12/16 16:30 190/115 96 - Physical Examination General: No Apparent Distress (aphasic) HEENT: Positive: Normocephaly, Mucus Membranes Moist Neck: Positive: neck supple, trachea midline Cardiac: Positive: irregularly irregular Lungs: Positive: clear to auscultation, Normal Breath Sounds Neuro: Positive: Other (left hemiparesis with aphasia) Abdomen: Positive: Soft, Active Bowel Sounds. Negative: Tender Skin: Positive: Clear. Negative: Rash Musculoskeletal: No Fluid Collection Extremities: Present: normal, upper extr. pulses, lower extr. pulses. Absent: edema - Labs and Meds Comprehensive Metabolic Panel 07/13/16 Range/Units 07:20 Sodium 140 (137-145) mmol/L Potassium 3.7 (3.6-5.0) mmol/L Chloride 105.0 (98-107) mmol/L Carbon Dioxide 25 (22-30) mmol/L BUN 23 H (9-20) mg/dL Creatinine 0.8 (0.8-1.5) mg/dL Glucose 199 H (75-100) mg/dL Calcium 8.7 (8.4-10.2) mg/dL - Imaging and Cardiology EKG: report reviewed, image reviewed Echo: report reviewed (06/2016: EF 50-55%) - Telemetry EKG Rhythm: Atrial Fibrillation - EKG Supraventricular dysrhythmia: atrial fibrillation Chamber hypertrophy or enlargement: left ventricular hypertro Repolarization changes or abnormalities: nonspecific abnormality, ST segment, and/or T wave, ST or T wave suggestive of ischemia
[2016-07-13] MEDS: ZOCOR PO SCH (22:07)
[2016-07-14] MEDS: LOPRESSOR PO SCH ×4 (01:31→19:54)
[2016-07-14] MEDS: HEPARIN SUB-Q SCH ×3 (05:19→21:14)
[2016-07-14 09:52] LABS: Anion Gap 17 mmol/L; BUN/Creatinine Ratio 26.66; Blood Urea Nitrogen 24 mg/dL (9-20); Calcium 8.7 mg/dL (8.4-10.2); Carbon Dioxide 25 mmol/L (22-30); Chloride 101.5 mmol/L (98-107); Glucose 167 mg/dL (75-100); Magnesium 1.7 mg/dL (1.7-2.3); Potassium 4.4 mmol/L (3.6-5.0); Sodium 139 mmol/L (137-145)
[2016-07-14] MEDS: CORDARONE PO SCH ×3 (12:00→19:54)
[2016-07-14] MEDS: APRESOLINE IV PRN (14:05)
[2016-07-14] MEDS: PLAVIX PO SCH (14:11)
--- NOTE | 2016-07-14 18:34 | Progress Note ---
Assessment and Plan To continue current management.No anticoagulation at this time.BP control. Increase PRN IV hydralazine dose to 20 mg. - Patient Problems (1) Accelerated hypertension Current Visit: Yes Status: Acute (2) Acute CVA (cerebrovascular accident) Current Visit: Yes Status: Acute (3) Acute non-ST elevation myocardial infarction (NSTEMI) Current Visit: Yes Status: Acute (4) Atrial fibrillation and flutter Current Visit: Yes Status: Acute (5) Elevated troponin Current Visit: Yes Status: Acute (6) Encephalopathy Current Visit: Yes Status: Acute (7) Noncompliance Current Visit: Yes Status: Acute Subjective Date of service: 07/14/16 Principal diagnosis: atrial fibrillation, L MCA [place] Interval history: Resting in bed. Not in distress. aphasic.Feeding tube in situ.Incresed BP 200/ 105 mm Hg. Objective Vital Signs Temp Pulse Pulse Pulse Resp Resp BP 07/14/16 14:06 200/105 07/14/16 14:05 200/105 07/14/16 12:10 98.4 F 89 20 07/14/16 09:25 98.1 F 84 18 07/14/16 06:15 86 132/86 07/14/16 04:00 97.8 F 95 H 18 07/14/16 01:31 80 122/70 07/14/16 00:35 98.3 F 80 18 07/13/16 23:06 20 07/13/16 22:10 18 07/13/16 22:06 18 07/13/16 20:34 73 07/13/16 20:01 102 H 180/82 07/13/16 20:00 98.1 F 102 H 107 H 20 BP BP Pulse Ox 07/14/16 14:06 07/14/16 14:05 07/14/16 12:10 200/105 93 07/14/16 09:25 174/95 97 07/14/16 06:15 07/14/16 04:00 187/96 98 07/14/16 01:31 07/14/16 00:35 119/61 97 07/13/16 23:06 07/13/16 22:10 07/13/16 22:06 07/13/16 20:34 07/13/16 20:01 07/13/16 20:00 183/88 96 - Physical Examination General: No Apparent Distress (aphasic) HEENT: Positive: Normocephaly, Mucus Membranes Moist Neck: Positive: neck supple, trachea midline Cardiac: Positive: Reg Rate and Rhythm Lungs: Positive: clear to auscultation, Normal Breath Sounds Neuro: Positive: Other (left hemiparesis with aphasia) Abdomen: Positive: Soft, Active Bowel Sounds. Negative: Tender Skin: Positive: Clear. Negative: Rash Musculoskeletal: No Fluid Collection Extremities: Present: normal, upper extr. pulses, lower extr. pulses. Absent: edema - Labs and Meds Comprehensive Metabolic Panel 07/14/16 Range/Units 09:05 Sodium 139 (137-145) mmol/L Potassium 4.4 (3.6-5.0) mmol/L Chloride 101.5 (98-107) mmol/L Carbon Dioxide 25 (22-30) mmol/L BUN 24 H (9-20) mg/dL Creatinine 0.9 (0.8-1.5) mg/dL Glucose 167 H (75-100) mg/dL Calcium 8.7 (8.4-10.2) mg/dL - Imaging and Cardiology EKG: report reviewed, image reviewed Echo: report reviewed (06/2016: EF 50-55%) - Telemetry EKG Rhythm: Atrial Fibrillation - EKG Supraventricular dysrhythmia: atrial fibrillation Chamber hypertrophy or enlargement: left ventricular hypertro Repolarization changes or abnormalities: ST or T wave suggestive of ischemia
[2016-07-14] MEDS: PERCOCET 5/325 PO PRN (19:54)
[2016-07-14] MEDS: ZOCOR PO SCH (21:14)
[2016-07-15] MEDS: LOPRESSOR PO SCH ×4 (01:11→22:51)
[2016-07-15] MEDS: CORDARONE PO SCH ×2 (01:11→22:43)
[2016-07-15] MEDS: HEPARIN SUB-Q SCH ×3 (06:27→22:44)
[2016-07-15] MEDS: PERCOCET 5/325 PO PRN (06:27)
--- NOTE | 2016-07-15 09:36 | Progress Note ---
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 Plavix. PT/OT evaluation ongoing. Neurology following. Dysphagia. Started puree diet as recommended by Speech pathologist. Rapid atrial fibrillation.Now rate controlled. He is followed by cardiology. On Lopressor and amiodarone. Neurology does not recommend starting anticoagulation at this time because of risk of intracranial hemorrhage. Hypertension. Metoprolol Encephalopathy due to acute stroke DVT prophylaxis. SCds only Full code status. History Interval history: patient with acute stroke, still non verbal, dysphagia Hospitalist Physical - Physical exam Narrative exam: Gen: Not in acute distress, Neck:supple, no JVD HEENT: Normocephalic, atraumatic Lungs:Clear to auscultation bilaterally, no rales or wheeze Heart:S1 and S2 irreg, rapid, no murmurs,rubs or gallop Abdomen:soft, non tender, non distended, normal bowel sounds Ext: No edema, clubbing or cyanosis Neuro: Lethargic,aphasia,right hemiparesis - Constitutional Vitals: Temp Pulse Resp BP Pulse Ox 98.6 F 94 H 24 158/80 94 07/15/16 05:16 07/15/16 06:27 07/15/16 06:27 07/15/16 06:27 07/15/16 05:16 General appearance: Present: mild distress, other (sedated for MRI) Results - Labs CBC & Chem 7: 07/11/16 06:27 07/14/16 09:05 Labs: Laboratory Last Values WBC 6.1 K/mm3 (4.5-11.0) 07/11/16 06:27 RBC 5.06 M/mm3 (3.65-5.03) H 07/11/16 06:27 Hgb 13.0 gm/dl (11.8-15.2) 07/11/16 06:27 Hct 39.9 % (35.5-45.6) 07/11/16 06:27 MCV 79 fl (84-94) L 07/11/16 06:27 MCH 26 pg (28-32) L 07/11/16 06:27 MCHC 33 % (32-34) 07/11/16 06:27 RDW 14.2 % (13.2-15.2) 07/11/16 06:27 Plt Count 144 K/mm3 (140-440) 07/11/16 06:27 Lymph % (Auto) 11.6 % (13.4-35.0) L 07/09/16 05:58 [place] % (Auto) 10.0 % (0.0-7.3) H 07/09/16 05:58 Eos % (Auto) 0.0 % (0.0-4.3) 07/09/16 05:58 Baso % (Auto) 0.8 % (0.0-1.8) 07/09/16 05:58 Lymph # 1.0 K/mm3 (1.2-5.4) L 07/09/16 05:58 [place] # 0.9 K/mm3 (0.0-0.8) H 07/09/16 05:58 Eos # 0.0 K/mm3 (0.0-0.4) 07/09/16 05:58 Baso # 0.1 K/mm3 (0.0-0.1) 07/09/16 05:58 Seg Neutrophils % 77.6 % (40.0-70.0) H 07/09/16 05:58 Seg Neutrophils # 7.0 K/mm3 (1.8-7.7) 07/09/16 05:58 PT 14.5 Sec. (12.2-14.9) 07/08/16 10:43 INR 1.14 (0.87-1.13) H 07/08/16 10:43 APTT 29.6 Sec. (24.2-36.6) 07/08/16 10:43 Thrombin Time 17.8 Sec. (15.1-19.6) 07/08/16 10:43 Sodium 139 mmol/L (137-145) 07/14/16 09:05 Potassium 4.4 mmol/L (3.6-5.0) 07/14/16 09:05 Chloride 101.5 mmol/L (98-107) 07/14/16 09:05 Carbon Dioxide 25 mmol/L (22-30) 07/14/16 09:05 Anion Gap 17 mmol/L 07/14/16 09:05 BUN 24 mg/dL (9-20) H 07/14/16 09:05 Creatinine 0.9 mg/dL (0.8-1.5) 07/14/16 09:05 Estimated GFR > 60 ml/min 07/14/16 09:05 BUN/Creatinine Ratio 26.66 % 07/14/16 09:05 Glucose 167 mg/dL (75-100) H 07/14/16 09:05 POC Glucose 240 (70-105) H 07/15/16 06:50 Calcium 8.7 mg/dL (8.4-10.2) 07/14/16 09:05 Magnesium 1.7 mg/dL (1.7-2.3) 07/14/16 09:05 Total Bilirubin 1.5 mg/dL (0.1-1.2) H 07/09/16 05:58 AST 38 units/L (5-40) 07/09/16 05:58 ALT 23 units/L (7-56) 07/09/16 05:58 Alkaline Phosphatase 72 units/L (35-129) 07/09/16 05:58 Total Creatine Kinase 948 units/L (55-170) H 07/09/16 16:58 CK-MB (CK-2) 7.6 ng/mL (0.0-4.0) H 07/09/16 16:58 CK-MB (CK-2) Rel Index 0.8 (0-4) 07/09/16 16:58 Troponin T 0.487 ng/mL (0.00-0.029) H* 07/09/16 16:58 Total Protein 7.4 g/dL (6.3-8.2) 07/09/16 05:58 Albumin 3.6 g/dL (3.9-5) L 07/09/16 05:58 Albumin/Globulin Ratio 0.9 % 07/09/16 05:58 Triglycerides 50 mg/dL (2-149) 07/08/16 10:43 Cholesterol 207 mg/dL (50-199) H 07/08/16 10:43 LDL Cholesterol Direct 121 mg/dL (50-130) 07/08/16 10:43 HDL Cholesterol 76 mg/dL (40-59) H 07/08/16 10:43 Cholesterol/HDL Ratio 2.72 % 07/08/16 10:43 TSH 1.440 mlU/mL (0.270-4.200) 07/09/16 21:31 Free T4 1.03 ng/dL (0.76-1.46) 07/09/16 21:31 Urine Color Red (Yellow) 07/08/16 14:47 Urine Turbidity Slightly-cloudy (Clear) 07/08/16 14:47 Urine pH 7.0 (5.0-7.0) 07/08/16 14:47 Ur Specific Bonnie 1.014 (1.003-1.030) 07/08/16 14:47 Urine Protein 100 mg/dl mg/dL (Negative) 07/08/16 14:47 Urine Glucose (UA) Neg mg/dL (Negative) 07/08/16 14:47 Urine Ketones Neg mg/dL (Negative) 07/08/16 14:47 Urine Blood Lg (Negative) 07/08/16 14:47 Urine Nitrite Neg (Negative) 07/08/16 14:47 Urine Bilirubin Neg (Negative) 07/08/16 14:47 Urine Urobilinogen < 2.0 mg/dL (<2.0) 07/08/16 14:47 Ur Leukocyte Esterase Mod (Negative) 07/08/16 14:47 Urine WBC (Auto) 36.0 /HPF (0.0-6.0) H 07/08/16 14:47 Urine RBC (Auto) > 182.0 /HPF (0.0-6.0) 07/08/16 14:47 U Epithel Cells (Auto) 1.0 /HPF (0-13.0) 07/08/16 14:47 Urine Bacteria (Auto) 1+ /HPF (Negative) 07/08/16 14:47 Urine Yeast (Budding) Few /HPF 07/08/16 14:47
--- NOTE | 2016-07-15 10:35 | Discharge Summary ---
Providers - Providers Date of Admission: 07/08/16 11:58 Date of discharge: 07/15/16 Attending physician: JH ABBOTT 07/08/16 22:10 Consult to Physician [CONS] Routine Consulting Provider: MYRON VILLATORO Reason For Exam: New onset CVA Place consult to:: Notified:: yes Comment:: called [id number] left msg for ashleigh Consult to Physician [CONS] Urgent Consulting Provider: SHAUN AG Reason For Exam: Afib with RVR Place consult to:: nilam Notified:: yes 07/08/16 22:14 Consult to Case Management [CONS] Routine Services Needed at Discharge: Home Health Services Manager Of Information Notified:: yes Consult to Dietitian/Nutrition [CONS] Routine Physician Instructions: Reason For Exam: Reason for Consult: Nutrition Recommendations Reason for Consult: Diet education Occupational Therapy Evaluate and Treat [CONS] Routine Comment: Reason For Exam: Neuro deficits Physical Therapy Evaluation and Treat [CONS] Routine Comment: Reason For Exam: Neuro deficits 07/08/16 22:26 Consult to Physician [CONS] Routine Consulting Provider: RIZWANA COUGHLIN Reason For Exam: Acute CVA Place consult to:: Notified:: yes Phone number called:: [phone] 07/09/16 17:15 Speech Therapy Evaluation and Treat [CONS] Routine Reason For Exam: swallowing and cognitive evaluation Primary care physician: FRUIT PICKER Hospitalization Condition: Fair Disposition: DC/TX SNF W [facility] CERT - Discharge Diagnoses (1) Acute CVA (cerebrovascular accident) Status: Acute (2) Acute non-ST elevation myocardial infarction (NSTEMI) Status: Acute (3) Atrial fibrillation with rapid ventricular response Status: Acute Exam - Constitutional Vitals: Temp Pulse Resp BP Pulse Ox 97.9 F 90 18 149/63 99 07/15/16 08:00 07/15/16 08:00 07/15/16 08:00 07/15/16 08:00 07/15/16 08:00 Plan Activity: advance as tolerated Diet: low fat, low cholesterol, low salt, other (pureed diet) Additional Instructions: 1.Follow up with Physician at SNF in 3-5 days. Follow up with: PRIMARY CARE, [Primary Care Provider] - 3-5 Days Prescriptions: Amiodarone [Cordarone 200 MG TAB] 400 mg PO QID #90 tablet amLODIPine [Norvasc] 5 mg PO QDAY #30 tablet Clopidogrel [Plavix] 75 mg PO QDAY #30 tablet Metoprolol [Lopressor TAB] 50 mg PO Q6H #120 tablet Simvastatin [Zocor TAB] 20 mg PO QHS #30 tablet
--- NOTE | 2016-07-15 11:31 | Progress Note ---
Assessment and Plan Will reduce amiodarone to 400mg BID. Plan to initiate anticoagulation with Eliquis 2.5mg BID on 07/17/16 if okay with neurology. - Patient Problems (1) Acute CVA (cerebrovascular accident) Current Visit: Yes Status: Acute (2) Acute non-ST elevation myocardial infarction (NSTEMI) Current Visit: Yes Status: Acute (3) Accelerated hypertension Current Visit: Yes Status: Acute (4) Atrial fibrillation with rapid ventricular response Current Visit: Yes Status: Acute (5) Atrial fibrillation and flutter Current Visit: Yes Status: Acute (6) Noncompliance Current Visit: Yes Status: Acute Subjective Date of service: 07/15/16 Principal diagnosis: atrial fibrillation, L MCA stoke Interval history: The patient is resting comfortably in bed. He is aphasic. No acute distress noted. Daughter at bedside. Atrial fibrillation with controlled ventricular rate on the monitor. Objective Last Vital Signs Temp 97.9 F 07/15/16 08:00 Pulse 90 07/15/16 08:00 Resp 18 07/15/16 08:00 BP 149/63 07/15/16 08:00 Pulse Ox 99 07/15/16 08:00 - Physical Examination General: No Apparent Distress (aphasic) HEENT: Positive: Normocephaly, Mucus Membranes Moist Neck: Positive: neck supple, trachea midline Cardiac: Positive: irregularly irregular, S1/S2 Lungs: Positive: clear to auscultation Neuro: Positive: Other (left hemiparesis with aphasia) Abdomen: Positive: Soft, Active Bowel Sounds. Negative: Tender Skin: Positive: Clear. Negative: Rash Musculoskeletal: No Fluid Collection Extremities: Present: normal, upper extr. pulses, lower extr. pulses. Absent: edema - Imaging and Cardiology EKG: report reviewed, image reviewed Echo: report reviewed (06/2016: EF 50-55%) - Telemetry EKG Rhythm: Atrial Fibrillation Chamber hypertrophy or enlargement: left ventricular hypertro Repolarization changes or abnormalities: ST or T wave suggestive of ischemia
[2016-07-15] MEDS: PLAVIX PO SCH (12:35)
[2016-07-15] MEDS: APRESOLINE IV PRN ×2 (12:51→22:44)
[2016-07-15] MEDS: NORVASC PO SCH ×2 (12:51→12:54)
--- NOTE | 2016-07-15 15:46 | Progress Note ---
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 Plavix. PT/OT evaluation ongoing. Neurology following. Dysphagia. Started puree diet as recommended by Speech pathologist. Rapid atrial fibrillation.Now rate controlled. He is followed by cardiology. On Lopressor and amiodarone. Neurology does not recommend starting anticoagulation at this time because of risk of intracranial hemorrhage. To resume anticoagulation in 7-10 days from 07/09/16. He was on Eliquis prior to admission but had stopped taking it. Hypertension. Metoprolol Encephalopathy due to acute stroke DVT prophylaxis. SCds only Full code status. Patient medically stable to discharge to SNF but needs to be off restraints for 24 hours. To d/c tomorrow. - Patient Problems (1) Acute CVA (cerebrovascular accident) Current Visit: Yes Status: Acute (2) Acute non-ST elevation myocardial infarction (NSTEMI) Current Visit: Yes Status: Acute (3) Atrial fibrillation with rapid ventricular response Current Visit: Yes Status: Acute History Interval history: patient with acute stroke, still non verbal, dysphagia, agitated on and off Hospitalist Physical - Physical exam Narrative exam: Gen: Not in acute distress, Neck:supple, no JVD HEENT: Normocephalic, atraumatic Lungs:Clear to auscultation bilaterally, no rales or wheeze Heart:S1 and S2 irreg, rapid, no murmurs,rubs or gallop Abdomen:soft, non tender, non distended, normal bowel sounds Ext: No edema, clubbing or cyanosis Neuro: Lethargic,aphasia,right hemiparesis, agitated on and off, on restraints - Constitutional Vitals: Temp Pulse Resp BP Pulse Ox 97.9 F 178 H 18 178/114 99 07/15/16 08:00 07/15/16 12:51 07/15/16 08:00 07/15/16 12:51 07/15/16 08:00 General appearance: Present: mild distress, other (sedated for MRI) Results - Labs CBC & Chem 7: 07/11/16 06:27 07/14/16 09:05 Labs: Laboratory Last Values WBC 6.1 K/mm3 (4.5-11.0) 07/11/16 06:27 RBC 5.06 M/mm3 (3.65-5.03) H 07/11/16 06:27 Hgb 13.0 gm/dl (11.8-15.2) 07/11/16 06:27 Hct 39.9 % (35.5-45.6) 07/11/16 06:27 MCV 79 fl (84-94) L 07/11/16 06:27 MCH 26 pg (28-32) L 07/11/16 06:27 MCHC 33 % (32-34) 07/11/16 06:27 RDW 14.2 % (13.2-15.2) 07/11/16 06:27 Plt Count 144 K/mm3 (140-440) 07/11/16 06:27 Lymph % (Auto) 11.6 % (13.4-35.0) L 07/09/16 05:58 [place] % (Auto) 10.0 % (0.0-7.3) H 07/09/16 05:58 Eos % (Auto) 0.0 % (0.0-4.3) 07/09/16 05:58 Baso % (Auto) 0.8 % (0.0-1.8) 07/09/16 05:58 Lymph # 1.0 K/mm3 (1.2-5.4) L 07/09/16 05:58 [place] # 0.9 K/mm3 (0.0-0.8) H 07/09/16 05:58 Eos # 0.0 K/mm3 (0.0-0.4) 07/09/16 05:58 Baso # 0.1 K/mm3 (0.0-0.1) 07/09/16 05:58 Seg Neutrophils % 77.6 % (40.0-70.0) H 07/09/16 05:58 Seg Neutrophils # 7.0 K/mm3 (1.8-7.7) 07/09/16 05:58 PT 14.5 Sec. (12.2-14.9) 07/08/16 10:43 INR 1.14 (0.87-1.13) H 07/08/16 10:43 APTT 29.6 Sec. (24.2-36.6) 07/08/16 10:43 Thrombin Time 17.8 Sec. (15.1-19.6) 07/08/16 10:43 Sodium 139 mmol/L (137-145) 07/14/16 09:05 Potassium 4.4 mmol/L (3.6-5.0) 07/14/16 09:05 Chloride 101.5 mmol/L (98-107) 07/14/16 09:05 Carbon Dioxide 25 mmol/L (22-30) 07/14/16 09:05 Anion Gap 17 mmol/L 07/14/16 09:05 BUN 24 mg/dL (9-20) H 07/14/16 09:05 Creatinine 0.9 mg/dL (0.8-1.5) 07/14/16 09:05 Estimated GFR > 60 ml/min 07/14/16 09:05 BUN/Creatinine Ratio 26.66 % 07/14/16 09:05 Glucose 167 mg/dL (75-100) H 07/14/16 09:05 POC Glucose 240 (70-105) H 07/15/16 06:50 Calcium 8.7 mg/dL (8.4-10.2) 07/14/16 09:05 Magnesium 1.7 mg/dL (1.7-2.3) 07/14/16 09:05 Total Bilirubin 1.5 mg/dL (0.1-1.2) H 07/09/16 05:58 AST 38 units/L (5-40) 07/09/16 05:58 ALT 23 units/L (7-56) 07/09/16 05:58 Alkaline Phosphatase 72 units/L (35-129) 07/09/16 05:58 Total Creatine Kinase 948 units/L (55-170) H 07/09/16 16:58 CK-MB (CK-2) 7.6 ng/mL (0.0-4.0) H 07/09/16 16:58 CK-MB (CK-2) Rel Index 0.8 (0-4) 07/09/16 16:58 Troponin T 0.487 ng/mL (0.00-0.029) H* 07/09/16 16:58 Total Protein 7.4 g/dL (6.3-8.2) 07/09/16 05:58 Albumin 3.6 g/dL (3.9-5) L 07/09/16 05:58 Albumin/Globulin Ratio 0.9 % 07/09/16 05:58 Triglycerides 50 mg/dL (2-149) 07/08/16 10:43 Cholesterol 207 mg/dL (50-199) H 07/08/16 10:43 LDL Cholesterol Direct 121 mg/dL (50-130) 07/08/16 10:43 HDL Cholesterol 76 mg/dL (40-59) H 07/08/16 10:43 Cholesterol/HDL Ratio 2.72 % 07/08/16 10:43 TSH 1.440 mlU/mL (0.270-4.200) 07/09/16 21:31 Free T4 1.03 ng/dL (0.76-1.46) 07/09/16 21:31 Urine Color Red (Yellow) 07/08/16 14:47 Urine Turbidity Slightly-cloudy (Clear) 07/08/16 14:47 Urine pH 7.0 (5.0-7.0) 07/08/16 14:47 Ur Specific [place] 1.014 (1.003-1.030) 07/08/16 14:47 Urine Protein 100 mg/dl mg/dL (Negative) 07/08/16 14:47 Urine Glucose (UA) Neg mg/dL (Negative) 07/08/16 14:47 Urine Ketones Neg mg/dL (Negative) 07/08/16 14:47 Urine Blood Lg (Negative) 07/08/16 14:47 Urine Nitrite Neg (Negative) 07/08/16 14:47 Urine Bilirubin Neg (Negative) 07/08/16 14:47 Urine Urobilinogen < 2.0 mg/dL (<2.0) 07/08/16 14:47 Ur Leukocyte Esterase Mod (Negative) 07/08/16 14:47 Urine WBC (Auto) 36.0 /HPF (0.0-6.0) H 07/08/16 14:47 Urine RBC (Auto) > 182.0 /HPF (0.0-6.0) 07/08/16 14:47 U Epithel Cells (Auto) 1.0 /HPF (0-13.0) 07/08/16 14:47 Urine Bacteria (Auto) 1+ /HPF (Negative) 07/08/16 14:47 Urine Yeast (Budding) Few /HPF 07/08/16 14:47
[2016-07-15] MEDS: ZOCOR PO SCH (22:43)
[2016-07-16] MEDS: LOPRESSOR PO SCH ×4 (02:00→12:28)
[2016-07-16] MEDS: APRESOLINE IV PRN ×2 (05:42→12:28)
[2016-07-16] MEDS: HEPARIN SUB-Q SCH (05:42)
[2016-07-16] MEDS: PLAVIX PO SCH (09:04)
[2016-07-16] MEDS: CORDARONE PO SCH ×2 (09:05→09:06)
[2016-07-16] MEDS: NORVASC PO SCH (09:05)
--- NOTE | 2016-07-16 11:32 | Progress Note ---
Assessment and Plan Currently stable cardiac status. Cont amiodarone to 400mg BID. Initiate anticoagulation with Eliquis 2.5mg BID. today. Pt may discharge to SNF from cardiology standpoint. Recommend follow up in our office with Dr. Brooke within 1-2 weeks of hospital discharge. The patient has been seen in conjunction with Dr. Velazquez who agrees with the assessment and plan of care. - Patient Problems (1) Acute CVA (cerebrovascular accident) Current Visit: Yes Status: Acute (2) Acute non-ST elevation myocardial infarction (NSTEMI) Current Visit: Yes Status: Acute (3) Accelerated hypertension Current Visit: Yes Status: Acute (4) Atrial fibrillation with rapid ventricular response Current Visit: Yes Status: Acute (5) Atrial fibrillation and flutter Current Visit: Yes Status: Acute (6) Noncompliance Current Visit: Yes Status: Acute Subjective Date of service: 07/16/16 Principal diagnosis: atrial fibrillation, L MCA stoke Interval history: Pt resting in bed, withdrawn, no complaints. VSS, in AFib on tele with CVR, BPs elevated. Awaiting d/c to SNF. Objective Last Vital Signs Temp 99.1 F 07/16/16 08:00 Pulse 98 H 07/16/16 08:27 Resp 18 07/16/16 08:00 BP 172/88 07/16/16 08:00 Pulse Ox 100 07/16/16 08:00 - Physical Examination General: No Apparent Distress (aphasic) HEENT: Positive: Normocephaly, Mucus Membranes Moist Neck: Positive: neck supple, trachea midline Cardiac: Positive: irregularly irregular, S1/S2 Lungs: Positive: Decreased Breath Sounds Neuro: Positive: Other (left hemiparesis with aphasia) Abdomen: Positive: Soft, Active Bowel Sounds. Negative: Tender Skin: Positive: Clear. Negative: Rash Musculoskeletal: No Fluid Collection Extremities: Present: normal, upper extr. pulses, lower extr. pulses. Absent: edema - Imaging and Cardiology EKG: report reviewed, image reviewed Echo: report reviewed (06/2016: EF 50-55%) - Telemetry EKG Rhythm: Sinus Rhythm Chamber hypertrophy or enlargement: left ventricular hypertro Repolarization changes or abnormalities: ST or T wave suggestive of ischemia
[2016-07-16] MEDS ORDERED: ELIQUIS PO SCH (12:00)
--- NOTE | 2016-07-16 15:16 | Progress Note ---
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 Plavix. PT/OT evaluation ongoing. Neurology following. Dysphagia. Started puree diet as recommended by Speech pathologist. Rapid atrial fibrillation.Now rate controlled. He is followed by cardiology. On Lopressor and amiodarone. Cardiology recommend Eliquis Hypertension. Metoprolol Encephalopathy due to acute stroke DVT prophylaxis. SCds only Full code status. Patient medically stable to discharge to SNF but SNF refused to take him until he is off restraints for 48 hrs. History Interval history: Patient was seen and evaluated this morning. No new complaints. Hospitalist Physical - Physical exam Narrative exam: Not in cardiopulmonary distress. The patient appeared well nourished and normally developed. Vital signs as documented. Head exam is unremarkable. No scleral icterus . Neck is without jugular venous distension, thyromegaly, or carotid bruits. Lungs are clear to auscultation. Cardiac exam reveals regular rate and Rhythm. First and second heart sounds normal. No murmurs, rubs or gallops. Abdominal exam reveals normal bowel sounds, no masses, no organomegaly and no aortic enlargement. Extremities are nonedematous and both femoral and pedal pulses are normal. VETERINARY ATTENDANT: Patient is confused, right sided hemiparesis. On restraints. - Constitutional Vitals: Temp Pulse Resp BP Pulse Ox 99.1 F 98 H 18 163/101 100 07/16/16 08:00 07/16/16 12:13 07/16/16 08:00 07/16/16 12:13 07/16/16 08:00 General appearance: Present: mild distress, other (sedated for MRI) Results - Labs CBC & Chem 7: 07/11/16 06:27 07/14/16 09:05 Labs: Laboratory Last Values WBC 6.1 K/mm3 (4.5-11.0) 07/11/16 06:27 RBC 5.06 M/mm3 (3.65-5.03) H 07/11/16 06:27 Hgb 13.0 gm/dl (11.8-15.2) 07/11/16 06:27 Hct 39.9 % (35.5-45.6) 07/11/16 06:27 MCV 79 fl (84-94) L 07/11/16 06:27 MCH 26 pg (28-32) L 07/11/16 06:27 MCHC 33 % (32-34) 07/11/16 06:27 RDW 14.2 % (13.2-15.2) 07/11/16 06:27 Plt Count 144 K/mm3 (140-440) 07/11/16 06:27 Lymph % (Auto) 11.6 % (13.4-35.0) L 07/09/16 05:58 [place] % (Auto) 10.0 % (0.0-7.3) H 07/09/16 05:58 Eos % (Auto) 0.0 % (0.0-4.3) 07/09/16 05:58 Baso % (Auto) 0.8 % (0.0-1.8) 07/09/16 05:58 Lymph # 1.0 K/mm3 (1.2-5.4) L 07/09/16 05:58 [place] # 0.9 K/mm3 (0.0-0.8) H 07/09/16 05:58 Eos # 0.0 K/mm3 (0.0-0.4) 07/09/16 05:58 Baso # 0.1 K/mm3 (0.0-0.1) 07/09/16 05:58 Seg Neutrophils % 77.6 % (40.0-70.0) H 07/09/16 05:58 Seg Neutrophils # 7.0 K/mm3 (1.8-7.7) 07/09/16 05:58 PT 14.5 Sec. (12.2-14.9) 07/08/16 10:43 INR 1.14 (0.87-1.13) H 07/08/16 10:43 APTT 29.6 Sec. (24.2-36.6) 07/08/16 10:43 Thrombin Time 17.8 Sec. (15.1-19.6) 07/08/16 10:43 Sodium 139 mmol/L (137-145) 07/14/16 09:05 Potassium 4.4 mmol/L (3.6-5.0) 07/14/16 09:05 Chloride 101.5 mmol/L (98-107) 07/14/16 09:05 Carbon Dioxide 25 mmol/L (22-30) 07/14/16 09:05 Anion Gap 17 mmol/L 07/14/16 09:05 BUN 24 mg/dL (9-20) H 07/14/16 09:05 Creatinine 0.9 mg/dL (0.8-1.5) 07/14/16 09:05 Estimated GFR > 60 ml/min 07/14/16 09:05 BUN/Creatinine Ratio 26.66 % 07/14/16 09:05 Glucose 167 mg/dL (75-100) H 07/14/16 09:05 POC Glucose 138 (70-105) H 07/16/16 11:15 Calcium 8.7 mg/dL (8.4-10.2) 07/14/16 09:05 Magnesium 1.7 mg/dL (1.7-2.3) 07/14/16 09:05 Total Bilirubin 1.5 mg/dL (0.1-1.2) H 07/09/16 05:58 AST 38 units/L (5-40) 07/09/16 05:58 ALT 23 units/L (7-56) 07/09/16 05:58 Alkaline Phosphatase 72 units/L (35-129) 07/09/16 05:58 Total Creatine Kinase 948 units/L (55-170) H 07/09/16 16:58 CK-MB (CK-2) 7.6 ng/mL (0.0-4.0) H 07/09/16 16:58 CK-MB (CK-2) Rel Index 0.8 (0-4) 07/09/16 16:58 Troponin T 0.487 ng/mL (0.00-0.029) H* 07/09/16 16:58 Total Protein 7.4 g/dL (6.3-8.2) 07/09/16 05:58 Albumin 3.6 g/dL (3.9-5) L 07/09/16 05:58 Albumin/Globulin Ratio 0.9 % 07/09/16 05:58 Triglycerides 50 mg/dL (2-149) 07/08/16 10:43 Cholesterol 207 mg/dL (50-199) H 07/08/16 10:43 LDL Cholesterol Direct 121 mg/dL (50-130) 07/08/16 10:43 HDL Cholesterol 76 mg/dL (40-59) H 07/08/16 10:43 Cholesterol/HDL Ratio 2.72 % 07/08/16 10:43 TSH 1.440 mlU/mL (0.270-4.200) 07/09/16 21:31 Free T4 1.03 ng/dL (0.76-1.46) 07/09/16 21:31 Urine Color Red (Yellow) 07/08/16 14:47 Urine Turbidity Slightly-cloudy (Clear) 07/08/16 14:47 Urine pH 7.0 (5.0-7.0) 07/08/16 14:47 Ur Specific [place] 1.014 (1.003-1.030) 07/08/16 14:47 Urine Protein 100 mg/dl mg/dL (Negative) 07/08/16 14:47 Urine Glucose (UA) Neg mg/dL (Negative) 07/08/16 14:47 Urine Ketones Neg mg/dL (Negative) 07/08/16 14:47 Urine Blood Lg (Negative) 07/08/16 14:47 Urine Nitrite Neg (Negative) 07/08/16 14:47 Urine Bilirubin Neg (Negative) 07/08/16 14:47 Urine Urobilinogen < 2.0 mg/dL (<2.0) 07/08/16 14:47 Ur Leukocyte Esterase Mod (Negative) 07/08/16 14:47 Urine WBC (Auto) 36.0 /HPF (0.0-6.0) H 07/08/16 14:47 Urine RBC (Auto) > 182.0 /HPF (0.0-6.0) 07/08/16 14:47 U Epithel Cells (Auto) 1.0 /HPF (0-13.0) 07/08/16 14:47 Urine Bacteria (Auto) 1+ /HPF (Negative) 07/08/16 14:47 Urine Yeast (Budding) Few /HPF 07/08/16 14:47
[2016-07-16 16:47] VITALS: BP 164/82
--- NOTE | 2016-07-17 10:25 | Discharge Summary ---
Providers - Providers Date of Admission: 07/08/16 11:58 Date of discharge: 07/17/16 Attending physician: PERRI HERNANDEZ MD 07/08/16 22:10 Consult to Physician [CONS] Routine Consulting Provider: MYRON VILLATORO Reason For Exam: New onset CVA Place consult to:: Notified:: yes Comment:: called [phone] left msg for ashleigh Consult to Physician [CONS] Urgent Consulting Provider: HSAUN AG Reason For Exam: Afib with RVR Place consult to:: nilam Notified:: yes 07/08/16 22:14 Consult to Case Management [CONS] Routine Services Needed at Discharge: Home Health Services Driver/Sales Workers Notified:: yes Consult to Dietitian/Nutrition [CONS] Routine Physician Instructions: Reason For Exam: Reason for Consult: Nutrition Recommendations Reason for Consult: Diet education Occupational Therapy Evaluate and Treat [CONS] Routine Comment: Reason For Exam: Neuro deficits Physical Therapy Evaluation and Treat [CONS] Routine Comment: Reason For Exam: Neuro deficits 07/08/16 22:26 Consult to Physician [CONS] Routine Consulting Provider: RIZWANA COUGHLIN Reason For Exam: Acute CVA Place consult to:: Notified:: yes Phone number called:: [phone] 07/09/16 17:15 Speech Therapy Evaluation and Treat [CONS] Routine Reason For Exam: swallowing and cognitive evaluation Primary care physician: ENGINEER FIRST ASSISTANT Hospitalization Reason for admission: acute CVA Condition: Fair Hospital course: I didn't put the discharge order yesterday and have no knowledge of the patient was discharged. The only thing i knew was the patient was pending placement. Dr Evans put a D/C order 2 days ago and it was cancelled. Disposition: DC/TX SNF [facility] CERT - Discharge Diagnoses (1) Accelerated hypertension Status: Acute (2) Acute CVA (cerebrovascular accident) Status: Acute (3) Acute non-ST elevation myocardial infarction (NSTEMI) Status: Acute (4) Atrial fibrillation and flutter Status: Acute Core Measure Documentation - Stroke Discharge Requirements Statin for LDL = or >70 mg/dl on DC: Yes Anticoag for atrial fib/atrial flutter: Yes Antithrombotic for ischemic stroke: Yes Exam - Physical Exam Narrative exam: Not in cardiopulmonary distress. The patient appeared well nourished and normally developed. Vital signs as documented. Head exam is unremarkable. No scleral icterus . Neck is without jugular venous distension, thyromegaly, or carotid bruits. Lungs are clear to auscultation. Cardiac exam reveals regular rate and Rhythm. First and second heart sounds normal. No murmurs, rubs or gallops. Abdominal exam reveals normal bowel sounds, no masses, no organomegaly and no aortic enlargement. Extremities are nonedematous and both femoral and pedal pulses are normal. ASSISTANT ELEMENTARY TEACHER: Patient is confused, right sided hemiparesis. On restraints. - Constitutional Vitals: Temp Pulse Resp BP Pulse Ox 98.4 F 96 H 18 164/82 94 07/16/16 16:00 07/16/16 16:00 07/16/16 16:00 07/16/16 16:00 07/16/16 16:00 Plan Follow up with: PRIMARY CARE, [Primary Care Provider] - 3-5 Days Prescriptions: Simvastatin [Zocor TAB] 20 mg PO QHS #30 tablet Amiodarone [Cordarone 200 MG TAB] 400 mg PO QID #90 tablet amLODIPine [Norvasc] 5 mg PO QDAY #30 tablet Clopidogrel [Plavix] 75 mg PO QDAY #30 tablet Metoprolol [Lopressor TAB] 50 mg PO Q6H #120 tablet
== END 2016-07-16 18:45 | DRG 64 ==
LOC: ED 10:28 → 4A 11:58 → CC1 18:51 → 4A 07-10 18:07
PROVIDERS: ADMIT Internal Medicine; ATTEND Internal Medicine
DX: I63.9 Cerebral infarction, unspecified (principal); I21.4 Non-ST elevation (NSTEMI) myocardial infarction; G93.40 Encephalopathy, unspecified; I69.951 Hemiplegia and hemiparesis following unspecified cerebrovascular disease affecting right dominant side; I48.0 Paroxysmal atrial fibrillation; I10 Essential (primary) hypertension; E16.2 Hypoglycemia, unspecified; R13.10 Dysphagia, unspecified; Z91.19 Patient's noncompliance with other medical treatment and regimen; Z82.49 Family history of ischemic heart disease and other diseases of the circulatory system; I69.920 Aphasia following unspecified cerebrovascular disease
CPT/HCPCS: 36415; 70450; 70544; 70551; 71010; 74000; 80048; 80053; 80061; 81001; 82550; 82553; 82962; 83735; 84439; 84443; 84484; 85025; 85027; 85610; 85670; 85730; 93005; 93010; 93306; 93880; 94760; 96365; 96366; G8978-GP; G8979-GP; G8987-GO; G8988-GO; G8989-GO; G8996-GN; G8997-GN; J0360; J1644; J2060; J7030